=== PATIENT | male | born 1950 | race Caucasian/White ===

== ENCOUNTER 2017-02-16 09:08 | Outpatient (CLI) | payer MEDICAID ==
[~2017-02-16 09:08] MED LIST: IBUP-1984 PO; MULT-933 PO; NICO-687 TD; NYSPWD TP
== END 2017-02-16 10:30 | disposition home or self-care (01) ==
LOC: WOUND CARE 09:08
PROVIDERS: ATTEND Surgery
DX: E11.622 Type 2 diabetes mellitus with other skin ulcer (principal); L97.811 Non-pressure chronic ulcer of other part of right lower leg limited to breakdown of skin; J44.9 Chronic obstructive pulmonary disease, unspecified; F17.200 Nicotine dependence, unspecified, uncomplicated; F15.90 Other stimulant use, unspecified, uncomplicated; Z79.899 Other long term (current) drug therapy
CPT/HCPCS: 36416; 82948; 99211

== ENCOUNTER 2017-02-23 09:00 | Outpatient (CLI) | payer MEDICAID | END 2017-02-23 10:17 | disposition home or self-care (01) | LOC: WOUND CARE 09:00 → EDSTATUS 09:00 → WOUND CARE 10:17 | PROVIDERS: ATTEND Surgery | DX: E11.622 Type 2 diabetes mellitus with other skin ulcer (principal); L97.811 Non-pressure chronic ulcer of other part of right lower leg limited to breakdown of skin; J44.9 Chronic obstructive pulmonary disease, unspecified; F17.200 Nicotine dependence, unspecified, uncomplicated; F15.90 Other stimulant use, unspecified, uncomplicated; Z79.899 Other long term (current) drug therapy | CPT/HCPCS: 82948; 99215 ==

== ENCOUNTER 2017-06-11 06:59 | Inpatient (IN) | payer MEDICAID ==
[~2017-06-11] VITALS: Ht 170.2 cm; Wt 92.4 kg
[2017-06-11 07:34] LABS: BASOPHILS % (AUTO) 0.3 % (0-1); EOSINOPHILS # (AUTO) 0.3 X10'3 (0-0.9); HEMATOCRIT 37.8 % (42.0-52.0); HEMOGLOBIN 12.6 g/dl (14.0-17.9); LYMPHOCYTES # (AUTO) 1.2 X10'3 (1.1-4.8); MEAN CORPUSCULAR HEMOGLOBIN 32.4 PG (27.0-31.0); MEAN CORPUSCULAR HGB CONC 33.4 % (33.0-36.5); MEAN CORPUSCULAR VOLUME 96.8 FL (78-98); MEAN PLATELET VOLUME 9.3 FL (7.4-10.4); MONOCYTES # (AUTO) 0.6 X10'3 (0-0.9); MONOCYTES % (AUTO) 5.7 % (2-12); PLATELET COUNT 281 X10'3 (140-440); RED BLOOD COUNT 3.91 X10'6 (4.70-6.10); RED CELL DISTRIBUTION WIDTH 14.5 % (11.5-14.5); WHITE BLOOD COUNT 11.3 X10'3 (4.5-11.0)
[2017-06-11 07:48] LABS: ALANINE AMINOTRANSFERASE 37 U/L (12-78); ALBUMIN 3.3 G/DL (3.4-5.0); ALBUMIN/GLOBULIN RATIO 0.8 (1.1-1.5); ALKALINE PHOSPHATASE 97 IU/L (46-116); ANION GAP 11 (8-16); ASPARTATE AMINO TRANSFERASE 28 U/L (10-37); BILIRUBIN,TOTAL 0.8 MG/DL (0.1-1.0); BLOOD UREA NITROGEN 21 MG/DL (7-18); BUN/CREATININE RATIO 19.6 (5.4-32.0); CALCIUM 8.7 MG/DL (8.5-10.1); CHLORIDE 108 MMOL/L (99-107); CREATININE 1.07 MG/DL (0.60-1.10); GLUCOSE 150 MG/DL (70-104); POTASSIUM 4.2 MMOL/L (3.5-5.1); SODIUM 143 MMOL/L (135-145); TOTAL CARBON DIOXIDE 23.6 MMOL/L (24-32); TOTAL PROTEIN 7.6 G/DL (6.4-8.2); eGFR 70 ML/MIN
[2017-06-11] MEDS ORDERED: azithromycin/NS 500mg/250ml 250 ML IV ONE (08:30)
[2017-06-11] MEDS ORDERED: CefTRIAXone 2gm/D5W 50ml 50 ML IV ONE (08:30)
[2017-06-11] MEDS ORDERED: aspirin 81mg tab.chew PO ONE (08:30)
[2017-06-11] MEDS ORDERED: methylPREDNISolone sod succ 125mg/2ml vial IV ONE (08:30)
[2017-06-11] MEDS ORDERED: albuterol 2.5 MG/3 ML nebule NEB ONE (08:30)
[2017-06-11 08:54] LABS: INR 0.9 INR; PARTIAL THROMBOPLASTIN TIME 25 SECONDS (22-32); PROTHROMBIN TIME 9.7 SECONDS (9.0-12.0)
[2017-06-11] MEDS ORDERED: enoxaparin 100mg/ml syringe SUBCUT ONE (09:00)
[2017-06-11 09:04] LABS: CREATINE KINASE 440 U/L (39-308); MAGNESIUM 2.1 MG/DL (1.5-2.4)
[2017-06-11] MEDS ORDERED: potassium Cl 20 mEq SR tablet PO PRN ×2 (09:05)
[2017-06-11] MEDS ORDERED: proMETHazine 12.5mg rectal suppository RC PRN (09:05)
[2017-06-11] MEDS ORDERED: mag hydrox/Alum hydrox/simeth 30ml oral suspension PO PRN (09:05)
[2017-06-11] MEDS ORDERED: magnesium 2GM in 50ml NS 50 ML IV PRN (09:05)
[2017-06-11] MEDS ORDERED: acetaminophen 325mg tablet PO PRN ×2 (09:05)
[2017-06-11] MEDS ORDERED: magnesium Cl slow-release 64mg tablet PO PRN (09:05)
[2017-06-11] MEDS ORDERED: magnesium 4gm in 100ml NS 100 ML IV PRN (09:05)
[2017-06-11] MEDS ORDERED: potassium Cl 40MEQ/NS 500ml 500 ML IV PRN ×2 (09:05)
[2017-06-11] MEDS ORDERED: aspirin 325mg tablet PO ONE (09:05)
[2017-06-11] MEDS ORDERED: lisinopril 10 MG tablet PO ONE (09:05)
[2017-06-11] MEDS ORDERED: magnesium hydroxide 30ml (MOM) UD suspension PO PRN (09:05)
[2017-06-11] MEDS: LORazepam 2 mg/ml vial IV PRN ×3 (10:53→21:22)
[2017-06-11] MEDS: aspirin 325mg tablet PO SCH (10:57)
[2017-06-11] MEDS: ipratropium/albuterol 3ml nebule NEB SCH ×3 (11:00→23:41)
[2017-06-11 12:13] LABS: HEMOGLOBIN A1C 6.4 % (4.5-6.2)
[2017-06-11] MEDS: mineral oil/petrolatum, white cream 113gm jar TP SCH ×2 (13:00→20:44)
[2017-06-11 13:25] LABS: HIV ANTIBODY 1&2 RAPID NON-REACTIVE (Neg)
[2017-06-11] MEDS: methylPREDNISolone sod succ/PF 40mg inj. IV SCH ×2 (14:24→19:19)
[2017-06-11 15:30] VITALS: BP 145/97
[2017-06-11] MEDS ORDERED: nicotine 21mg patch - 24 hr TD ONE (17:45)
[2017-06-11 19:00] VITALS: BP 129/76
[2017-06-11] MEDS: enoxaparin 60mg/0.6ml syringe SQ SCH (19:19)
[2017-06-11] MEDS: enoxaparin 30mg/0.3ml syringe SQ SCH (19:19)
[2017-06-11] MEDS: docusate sod 100mg capsule PO SCH (19:19)
[2017-06-11] MEDS: metoprolol tartrate 12.5mg (1/2 tablet) PO SCH (19:20)
[2017-06-11 20:17] LABS: URINE AMPHETAMINE SCREEN POSITIVE (Neg); URINE BARBITUATE SCREEN NEGATIVE (Neg); URINE BENZODIAZEPINES SCREEN NEGATIVE (Neg); URINE CANNABINOID SCREEN POSITIVE (Neg); URINE COCAINE SCREEN NEGATIVE (Neg); URINE METHADONE SCREEN NEGATIVE (Neg); URINE OPIATE SCREEN NEGATIVE (Neg); URINE PHENCYCLIDINE SCREEN NEGATIVE (Neg)
[2017-06-11] MEDS ORDERED: pneumococcal 23-VAL P-sac vacc 25 mcg/0.5ml vial IMVAC ONE (20:30)
[2017-06-11] MEDS: nystatin 15 GM powder TP SCH (20:44)
[2017-06-11 23:04] VITALS: BP_SYST 121; BP_SYST 123; BP_SYST 128; BP_DIAS 94; BP_DIAS 95
[2017-06-12] VITALS: BP_SYST 121; BP_SYST 123; BP_SYST 128; BP_DIAS 94; BP_DIAS 95
[2017-06-12] MEDS: methylPREDNISolone sod succ/PF 40mg inj. IV SCH ×3 (02:13→19:11)
[2017-06-12] MEDS: LORazepam 2 mg/ml vial IV PRN ×2 (03:44→07:53)
[2017-06-12] MEDS: ipratropium/albuterol 3ml nebule NEB SCH ×6 (03:58→22:58)
[2017-06-12 06:44] LABS: BASOPHILS # (AUTO) 0.3 X10'3 (0-0.2); BASOPHILS % (AUTO) 1.4 % (0-1); EOSINOPHILS % (AUTO) 0 % (0-6); HEMATOCRIT 38.9 % (42.0-52.0); HEMOGLOBIN 12.9 g/dl (14.0-17.9); LYMPHOCYTES # (AUTO) 0.7 X10'3 (1.1-4.8); LYMPHOCYTES % (AUTO) 3.1 % (21-51); MEAN CORPUSCULAR HEMOGLOBIN 32.2 PG (27.0-31.0); MEAN CORPUSCULAR HGB CONC 33.1 % (33.0-36.5); MEAN CORPUSCULAR VOLUME 97.3 FL (78-98); MEAN PLATELET VOLUME 9.4 FL (7.4-10.4); MONOCYTES # (AUTO) 0.3 X10'3 (0-0.9); MONOCYTES % (AUTO) 1.4 % (2-12); NEUTROPHILS % (AUTO) 94.1 % (42-75); PLATELET COUNT 295 X10'3 (140-440); WHITE BLOOD COUNT 22.3 X10'3 (4.5-11.0)
[2017-06-12 07:13] LABS: ALANINE AMINOTRANSFERASE 32 U/L (12-78); ALBUMIN 3.2 G/DL (3.4-5.0); ALBUMIN/GLOBULIN RATIO 0.7 (1.1-1.5); ALKALINE PHOSPHATASE 99 IU/L (46-116); ANION GAP 11 (8-16); ASPARTATE AMINO TRANSFERASE 20 U/L (10-37); BILIRUBIN,TOTAL 0.6 MG/DL (0.1-1.0); BLOOD UREA NITROGEN 28 MG/DL (7-18); BUN/CREATININE RATIO 24.6 (5.4-32.0); CALCIUM 8.9 MG/DL (8.5-10.1); CHLORIDE 108 MMOL/L (99-107); CHOL/HDL RATIO 4.5 (0.00-4.99); CHOLESTEROL 179 MG/DL (0-200); CREATININE 1.14 MG/DL (0.60-1.10); GLUCOSE 161 MG/DL (70-104); HDL CHOLESTEROL 40 MG/DL (35-60); LDL CHOLESTEROL 126 MG/DL (50-100); MAGNESIUM 2.3 MG/DL (1.5-2.4); POTASSIUM 4.3 MMOL/L (3.5-5.1); SODIUM 142 MMOL/L (135-145); TOTAL CARBON DIOXIDE 22.6 MMOL/L (24-32); TOTAL PROTEIN 7.7 G/DL (6.4-8.2); TRIGLYCERIDES 51 MG/DL (20-135); eGFR 65 ML/MIN
[2017-06-12 07:18] VITALS: BP 135/86
[2017-06-12] MEDS: CefTRIAXone 2gm/D5W 50ml 50 ML IV SCH (07:49)
[2017-06-12] MEDS: metoprolol tartrate 12.5mg (1/2 tablet) PO SCH ×2 (07:50→19:10)
[2017-06-12] MEDS: docusate sod 100mg capsule PO SCH ×2 (07:50→19:10)
[2017-06-12] MEDS: azithromycin 250mg tablet PO SCH (07:50)
[2017-06-12] MEDS: loratadine 10mg tablet PO SCH (07:50)
[2017-06-12] MEDS: enoxaparin 30mg/0.3ml syringe SQ SCH ×2 (07:51→19:11)
[2017-06-12] MEDS: nicotine 21mg patch - 24 hr TD SCH (07:51)
[2017-06-12] MEDS: multivitamins, therapeutics tablet PO SCH (07:52)
[2017-06-12] MEDS: lisinopril 10 MG tablet PO SCH (07:52)
[2017-06-12] MEDS: K and/or MAG REPLACEMENT MC SCH (08:00)
[2017-06-12] MEDS ORDERED: nicotine 21mg patch - 24 hr TD SCH (08:00)
[2017-06-12] MEDS: mineral oil/petrolatum, white cream 113gm jar TP SCH ×3 (08:00→21:12)
[2017-06-12 08:10] LABS: RPR Non Reactive (Non Reactive)
[2017-06-12] MEDS: enoxaparin 60mg/0.6ml syringe SQ SCH ×2 (08:36→19:11)
[2017-06-12] MEDS: nystatin 15 GM powder TP SCH ×3 (08:36→21:13)
[2017-06-12] MEDS ORDERED: LORazepam 2 mg/ml vial IV PRN (09:05)
[2017-06-12] MEDS ORDERED: dextrose ORAL solution 15 GM/59 ML bottle PO PRN ×2 (09:05)
[2017-06-12] MEDS ORDERED: glucagon, human recombinant 1mg kit SUBCUT PRN (09:05)
[2017-06-12] MEDS ORDERED: dextrose 50%-water 50ml dispensing syringe IV PRN ×2 (09:05)
[2017-06-12] MEDS ORDERED: MESSAGE TO PHARMACY PO ONE (09:05)
[2017-06-12] MEDS ORDERED: thiamine inj. 100 MG in normal saline 100ml IV soln 100 ML IV ONE (10:10)
[2017-06-12 10:12] VITALS: BP_SYST 129; BP_SYST 135; BP_DIAS 102; BP_DIAS 86; BP_DIAS 99
[2017-06-12] MEDS: LORazepam 0.5 MG tablet PO PRN ×3 (11:25→23:26)
[2017-06-12 12:30] VITALS: BP 120/80
[2017-06-12] MEDS: insulin Lispro (HumaLOG) vial - multi-dose SQ SCH ×2 (13:51→19:09)
[2017-06-12 18:30] VITALS: BP_SYST 124; BP_SYST 134; BP_SYST 137; BP_DIAS 104; BP_DIAS 87; BP_DIAS 92
[2017-06-12] MEDS: insulin glargine (Lantus) pen - multi-dose SQ SCH (21:11)
[2017-06-12 23:00] VITALS: BP 135/96
[2017-06-13] MEDS: LORazepam 0.5 MG tablet PO PRN ×5 (01:31→23:36)
[2017-06-13] MEDS: HYDROcodone/acetaminophen 5mg/325mg tablet PO PRN (01:40)
[2017-06-13] MEDS: ipratropium/albuterol 3ml nebule NEB SCH ×6 (02:39→23:00)
[2017-06-13 05:59] LABS: BASOPHILS # (AUTO) 0.1 X10'3 (0-0.2); BASOPHILS % (AUTO) 0.6 % (0-1); EOSINOPHILS % (AUTO) 0 % (0-6); HEMATOCRIT 36.1 % (42.0-52.0); HEMOGLOBIN 12.3 g/dl (14.0-17.9); LYMPHOCYTES # (AUTO) 1.1 X10'3 (1.1-4.8); LYMPHOCYTES % (AUTO) 4.3 % (21-51); MEAN CORPUSCULAR HEMOGLOBIN 32.9 PG (27.0-31.0); MEAN CORPUSCULAR HGB CONC 33.9 % (33.0-36.5); MEAN CORPUSCULAR VOLUME 96.9 FL (78-98); MEAN PLATELET VOLUME 10.1 FL (7.4-10.4); MONOCYTES # (AUTO) 0.6 X10'3 (0-0.9); MONOCYTES % (AUTO) 2.4 % (2-12); NEUTROPHILS # (AUTO) 23.1 X10'3 (1.8-7.7); NEUTROPHILS % (AUTO) 92.7 % (42-75); PLATELET COUNT 265 X10'3 (140-440); RED BLOOD COUNT 3.73 X10'6 (4.70-6.10); RED CELL DISTRIBUTION WIDTH 14.8 % (11.5-14.5)
[2017-06-13 06:23] LABS: ALANINE AMINOTRANSFERASE 32 U/L (12-78); ALBUMIN/GLOBULIN RATIO 0.7 (1.1-1.5); ALKALINE PHOSPHATASE 81 IU/L (46-116); AMYLASE 67 U/L (25-115); ANION GAP 11 (8-16); ASPARTATE AMINO TRANSFERASE 19 U/L (10-37); BILIRUBIN,TOTAL 0.6 MG/DL (0.1-1.0); BLOOD UREA NITROGEN 31 MG/DL (7-18); BUN/CREATININE RATIO 29.2 (5.4-32.0); CALCIUM 8.4 MG/DL (8.5-10.1); CHLORIDE 109 MMOL/L (99-107); CREATININE 1.06 MG/DL (0.60-1.10); GLUCOSE 146 MG/DL (70-104); LIPASE 343 U/L (73-393); MAGNESIUM 2.2 MG/DL (1.5-2.4); PHOSPHORUS 4.3 MG/DL (2.3-4.5); SODIUM 143 MMOL/L (135-145); TOTAL CARBON DIOXIDE 22.6 MMOL/L (24-32); TOTAL PROTEIN 7.1 G/DL (6.4-8.2); eGFR 70 ML/MIN
[2017-06-13 06:24] LABS: POTASSIUM 5.2 MMOL/L (3.5-5.1)
[2017-06-13 07:17] VITALS: BP 119/78
[2017-06-13 07:18] VITALS: BP_SYST 128; BP_SYST 132; BP_DIAS 80; BP_DIAS 94
[2017-06-13 07:19] VITALS: BP 119/78
[2017-06-13] MEDS: CefTRIAXone 2gm/D5W 50ml 50 ML IV SCH (07:46)
[2017-06-13] MEDS: methylPREDNISolone sod succ/PF 40mg inj. IV SCH ×2 (07:46→20:25)
[2017-06-13] MEDS: K and/or MAG REPLACEMENT MC SCH (07:49)
[2017-06-13 07:57] LABS: LYMPHOCYTES % (MANUAL) 2 % (21-51); MONOCYTES % (MANUAL) 1 % (2-12); NEUTROPHILS % (MANUAL) 97 % (42-75); PLATELET ESTIMATE NORMAL; TOTAL CELLS COUNTED 100
[2017-06-13] MEDS: loratadine 10mg tablet PO SCH (07:59)
[2017-06-13] MEDS: nicotine 21mg patch - 24 hr TD SCH (07:59)
[2017-06-13] MEDS: docusate sod 100mg capsule PO SCH ×2 (07:59→20:25)
[2017-06-13] MEDS: folic acid 1mg tablet PO SCH (08:00)
[2017-06-13] MEDS: mineral oil/petrolatum, white cream 113gm jar TP SCH ×3 (08:00→20:47)
[2017-06-13] MEDS: nystatin 15 GM powder TP SCH ×3 (08:00→20:48)
[2017-06-13] MEDS ORDERED: folic acid inj. 2 MG, thiamine inj. 100 MG, MVI, adult No.4 with vit. K 10 ML in dextro... IV SCH ×4 (08:00)
[2017-06-13] MEDS: thiamine 100mg tablet PO SCH (08:05)
[2017-06-13] MEDS: metoprolol tartrate 12.5mg (1/2 tablet) PO SCH ×2 (08:05→20:25)
[2017-06-13] MEDS: azithromycin 250mg tablet PO SCH (08:06)
[2017-06-13] MEDS: lisinopril 10 MG tablet PO SCH (08:06)
[2017-06-13] MEDS: aspirin 325mg tablet PO SCH (08:06)
[2017-06-13] MEDS: enoxaparin 30mg/0.3ml syringe SQ SCH ×2 (08:08→20:26)
[2017-06-13] MEDS: multivitamins, therapeutics tablet PO SCH (08:12)
[2017-06-13] MEDS: insulin Lispro (HumaLOG) vial - multi-dose SQ SCH ×3 (08:30→19:00)
[2017-06-13] MEDS: enoxaparin 60mg/0.6ml syringe SQ SCH ×2 (10:52→20:26)
[2017-06-13 11:22] VITALS: BP 122/79
[2017-06-13] MEDS ORDERED: NO HOME MEDS (17:03)
[2017-06-13] MEDS ORDERED: furosemide 20MG tablet PO ONE (17:15)
[2017-06-13] MEDS ORDERED: guaiFENesin 200 MG/10 ML oral syrup UD cup PO PRN (17:25)
[2017-06-13 20:00] VITALS: BP_SYST 127; BP_SYST 133; BP_SYST 137; BP_DIAS 100; BP_DIAS 72; BP_DIAS 87
[2017-06-13] MEDS: lactobacillus rhamnosus 10,000 MMU CELLS/CAPSULE PO SCH (20:25)
[2017-06-13] MEDS: insulin glargine (Lantus) pen - multi-dose SQ SCH (20:38)
[2017-06-14 00:24] VITALS: BP 118/91
[2017-06-14] MEDS: LORazepam 0.5 MG tablet PO PRN ×5 (03:08→21:05)
[2017-06-14] MEDS: ipratropium/albuterol 3ml nebule NEB SCH ×2 (04:43→07:18)
[2017-06-14 05:45] LABS: BASOPHILS % (AUTO) 0.1 % (0-1); EOSINOPHILS # (AUTO) 0.1 X10'3 (0-0.9); EOSINOPHILS % (AUTO) 0.5 % (0-6); HEMATOCRIT 34.8 % (42.0-52.0); HEMOGLOBIN 11.7 g/dl (14.0-17.9); LYMPHOCYTES # (AUTO) 1.3 X10'3 (1.1-4.8); MEAN CORPUSCULAR HEMOGLOBIN 32.2 PG (27.0-31.0); MEAN CORPUSCULAR HGB CONC 33.5 % (33.0-36.5); MEAN CORPUSCULAR VOLUME 96.2 FL (78-98); MEAN PLATELET VOLUME 9.3 FL (7.4-10.4); MONOCYTES # (AUTO) 0.6 X10'3 (0-0.9); MONOCYTES % (AUTO) 3.2 % (2-12); NEUTROPHILS % (AUTO) 89.2 % (42-75); PLATELET COUNT 299 X10'3 (140-440); RED BLOOD COUNT 3.62 X10'6 (4.70-6.10); RED CELL DISTRIBUTION WIDTH 14.8 % (11.5-14.5); WHITE BLOOD COUNT 19.1 X10'3 (4.5-11.0)
[2017-06-14 05:52] LABS: PROTHROMBIN TIME 10.3 SECONDS (9.0-12.0)
[2017-06-14 06:09] LABS: ALANINE AMINOTRANSFERASE 45 U/L (12-78); ALBUMIN/GLOBULIN RATIO 0.8 (1.1-1.5); ALKALINE PHOSPHATASE 77 IU/L (46-116); AMYLASE 40 U/L (25-115); ANION GAP 9 (8-16); ASPARTATE AMINO TRANSFERASE 25 U/L (10-37); BILIRUBIN,TOTAL 0.6 MG/DL (0.1-1.0); BLOOD UREA NITROGEN 41 MG/DL (7-18); BUN/CREATININE RATIO 32.5 (5.4-32.0); CALCIUM 8.6 MG/DL (8.5-10.1); CHLORIDE 108 MMOL/L (99-107); CREATININE 1.26 MG/DL (0.60-1.10); GLUCOSE 130 MG/DL (70-104); LIPASE 76 U/L (73-393); MAGNESIUM 2.1 MG/DL (1.5-2.4); PHOSPHORUS 4.8 MG/DL (2.3-4.5); POTASSIUM 4.5 MMOL/L (3.5-5.1); SODIUM 144 MMOL/L (135-145); TOTAL CARBON DIOXIDE 26.9 MMOL/L (24-32); TOTAL PROTEIN 6.9 G/DL (6.4-8.2); eGFR 58 ML/MIN
[2017-06-14] MEDS: K and/or MAG REPLACEMENT MC SCH (06:37)
[2017-06-14] MEDS: methylPREDNISolone sod succ/PF 40mg inj. IV SCH ×2 (07:01→19:43)
[2017-06-14] MEDS: enoxaparin 60mg/0.6ml syringe SQ SCH ×2 (07:01→19:42)
[2017-06-14] MEDS: loratadine 10mg tablet PO SCH (07:02)
[2017-06-14] MEDS: metoprolol tartrate 12.5mg (1/2 tablet) PO SCH ×2 (07:02→19:42)
[2017-06-14] MEDS: enoxaparin 30mg/0.3ml syringe SQ SCH ×2 (07:02→19:41)
[2017-06-14] MEDS: aspirin 325mg tablet PO SCH (07:02)
[2017-06-14] MEDS: multivitamins, therapeutics tablet PO SCH (07:02)
[2017-06-14] MEDS: azithromycin 250mg tablet PO SCH (07:03)
[2017-06-14] MEDS: nicotine 21mg patch - 24 hr TD SCH (07:03)
[2017-06-14] MEDS: thiamine 100mg tablet PO SCH (07:03)
[2017-06-14] MEDS: folic acid 1mg tablet PO SCH (07:03)
[2017-06-14] MEDS: docusate sod 100mg capsule PO SCH ×2 (07:03→19:42)
[2017-06-14] MEDS: lactobacillus rhamnosus 10,000 MMU CELLS/CAPSULE PO SCH ×2 (07:03→19:42)
[2017-06-14] MEDS: CefTRIAXone 2gm/D5W 50ml 50 ML IV SCH (07:04)
[2017-06-14] MEDS: mineral oil/petrolatum, white cream 113gm jar TP SCH ×3 (07:20→21:52)
[2017-06-14] MEDS: lisinopril 10 MG tablet PO SCH (07:21)
[2017-06-14] MEDS: HYDROcodone/acetaminophen 10/325mg tab PO PRN ×2 (07:31→22:27)
[2017-06-14] MEDS: insulin Lispro (HumaLOG) vial - multi-dose SQ SCH ×2 (07:38→13:07)
[2017-06-14 08:00] VITALS: BP 138/76
[2017-06-14] MEDS: nystatin 15 GM powder TP SCH ×3 (08:00→21:52)
[2017-06-14] MEDS ORDERED: furosemide 20MG tablet PO SCH (08:00)
[2017-06-14] MEDS ORDERED: clindamycin 600mg/D5W 50ml 50 ML IV SCH (08:00)
[2017-06-14] MEDS ORDERED: LORazepam 0.5 MG tablet PO ONE (08:35)
[2017-06-14] MEDS ORDERED: QUEtiapine 25mg tablet PO PRN (08:35)
[2017-06-14] MEDS: piperacillin/tazo 4.5gm/100ml 100 ML IV SCH ×3 (10:08→23:37)
[2017-06-14 11:02] VITALS: BP 128/98
[2017-06-14] MEDS: ipratropium 0.5 MG/2.5ML nebule IH SCH ×4 (11:12→23:28)
[2017-06-14] MEDS ORDERED: lactulose 20gm/30ml cup PO PRN (16:45)
[2017-06-14 20:00] VITALS: BP_SYST 111; BP_SYST 118; BP_SYST 137; BP_DIAS 88; BP_DIAS 94; BP_DIAS 95
[2017-06-14] MEDS ORDERED: furosemide 20 MG/2 ML vial IV SCH (20:00)
[2017-06-14] MEDS: insulin glargine (Lantus) pen - multi-dose SQ SCH (21:08)
[2017-06-15] VITALS (9 sets, daily range): BP systolic 90–123; BP diastolic 56–88
[2017-06-15] MEDS: LORazepam 0.5 MG tablet PO PRN ×4 (00:13→20:28)
[2017-06-15] MEDS: ipratropium 0.5 MG/2.5ML nebule IH SCH ×6 (03:18→23:32)
[2017-06-15 06:18] LABS: PROTHROMBIN TIME 10.8 SECONDS (9.0-12.0)
[2017-06-15 06:26] LABS: HEMATOCRIT 37.6 % (42.0-52.0); HEMOGLOBIN 12.6 g/dl (14.0-17.9); MEAN CORPUSCULAR HEMOGLOBIN 32.4 PG (27.0-31.0); MEAN CORPUSCULAR HGB CONC 33.6 % (33.0-36.5); MEAN CORPUSCULAR VOLUME 96.6 FL (78-98); MEAN PLATELET VOLUME 10.1 FL (7.4-10.4); PLATELET COUNT 292 X10'3 (140-440); RED CELL DISTRIBUTION WIDTH 15.1 % (11.5-14.5); WHITE BLOOD COUNT 16.5 X10'3 (4.5-11.0)
[2017-06-15 06:34] LABS: ALANINE AMINOTRANSFERASE 60 U/L (12-78); ALBUMIN/GLOBULIN RATIO 0.8 (1.1-1.5); ALKALINE PHOSPHATASE 70 IU/L (46-116); AMYLASE 33 U/L (25-115); ANION GAP 6 (8-16); ASPARTATE AMINO TRANSFERASE 29 U/L (10-37); BILIRUBIN,TOTAL 0.8 MG/DL (0.1-1.0); BLOOD UREA NITROGEN 42 MG/DL (7-18); BUN/CREATININE RATIO 28.6 (5.4-32.0); CALCIUM 8.1 MG/DL (8.5-10.1); CHLORIDE 106 MMOL/L (99-107); CREATININE 1.47 MG/DL (0.60-1.10); GLUCOSE 126 MG/DL (70-104); LIPASE 53 U/L (73-393); MAGNESIUM 2.4 MG/DL (1.5-2.4); PHOSPHORUS 5.5 MG/DL (2.3-4.5); POTASSIUM 4.8 MMOL/L (3.5-5.1); SODIUM 143 MMOL/L (135-145); TOTAL CARBON DIOXIDE 31.3 MMOL/L (24-32); TOTAL PROTEIN 6.7 G/DL (6.4-8.2); eGFR 48 ML/MIN
[2017-06-15 06:41] LABS: NEUTROPHILS % (MANUAL) 86 % (42-75); TOTAL CELLS COUNTED 100
[2017-06-15 06:42] LABS: BANDS% (MANUAL) 1 % (0-10); LYMPHOCYTES % (MANUAL) 11 % (21-51); MONOCYTES % (MANUAL) 2 % (2-12); PLATELET ESTIMATE NORMAL
[2017-06-15] MEDS: docusate sod 100mg capsule PO SCH ×2 (07:14→20:27)
[2017-06-15] MEDS: thiamine 100mg tablet PO SCH (07:14)
[2017-06-15] MEDS: multivitamins, therapeutics tablet PO SCH (07:15)
[2017-06-15] MEDS: folic acid 1mg tablet PO SCH (07:15)
[2017-06-15] MEDS: nicotine 21mg patch - 24 hr TD SCH (07:17)
[2017-06-15] MEDS: enoxaparin 30mg/0.3ml syringe SQ SCH ×2 (07:24→20:26)
[2017-06-15] MEDS: enoxaparin 60mg/0.6ml syringe SQ SCH ×2 (07:34→20:26)
[2017-06-15] MEDS: aspirin 325mg tablet PO SCH (07:39)
[2017-06-15] MEDS: loratadine 10mg tablet PO SCH (07:39)
[2017-06-15] MEDS: methylPREDNISolone sod succ/PF 40mg inj. IV SCH ×2 (08:00→20:25)
[2017-06-15] MEDS: K and/or MAG REPLACEMENT MC SCH (08:00)
[2017-06-15] MEDS: piperacillin/tazo 3.375gm/50ml 50 ML IV SCH ×3 (09:33→20:25)
[2017-06-15 09:42] LABS: HEMATOCRIT 39.4 % (42.0-52.0); HEMOGLOBIN 13.2 g/dl (14.0-17.9); MEAN CORPUSCULAR HEMOGLOBIN 32.5 PG (27.0-31.0); MEAN CORPUSCULAR HGB CONC 33.5 % (33.0-36.5); MEAN CORPUSCULAR VOLUME 96.9 FL (78-98); MEAN PLATELET VOLUME 9.6 FL (7.4-10.4); PLATELET COUNT 299 X10'3 (140-440); RED BLOOD COUNT 4.06 X10'6 (4.70-6.10); RED CELL DISTRIBUTION WIDTH 14.6 % (11.5-14.5); WHITE BLOOD COUNT 16.8 X10'3 (4.5-11.0)
[2017-06-15] MEDS: lactobacillus rhamnosus 10,000 MMU CELLS/CAPSULE PO SCH ×2 (11:01→20:26)
[2017-06-15] MEDS: mineral oil/petrolatum, white cream 113gm jar TP SCH ×3 (11:04→20:47)
[2017-06-15] MEDS: nystatin 15 GM powder TP SCH ×3 (11:08→20:46)
[2017-06-15] MEDS: insulin Lispro (HumaLOG) vial - multi-dose SQ SCH (13:04)
[2017-06-15] MEDS: insulin glargine (Lantus) pen - multi-dose SQ SCH (20:45)
[2017-06-15] MEDS: HYDROcodone/acetaminophen 10/325mg tab PO PRN (23:49)
[2017-06-16] VITALS (7 sets, daily range): BP systolic 97–132; BP diastolic 63–86
[2017-06-16] MEDS: piperacillin/tazo 3.375gm/50ml 50 ML IV SCH ×4 (01:47→20:58)
[2017-06-16] MEDS: LORazepam 0.5 MG tablet PO PRN ×2 (02:35→12:29)
[2017-06-16] MEDS: ipratropium 0.5 MG/2.5ML nebule IH SCH ×6 (03:09→23:48)
[2017-06-16 06:12] LABS: BASOPHILS # (AUTO) 0.1 X10'3 (0-0.2); BASOPHILS % (AUTO) 0.6 % (0-1); EOSINOPHILS # (AUTO) 0.1 X10'3 (0-0.9); EOSINOPHILS % (AUTO) 0.3 % (0-6); HEMATOCRIT 40.2 % (42.0-52.0); HEMOGLOBIN 13.4 g/dl (14.0-17.9); LYMPHOCYTES # (AUTO) 1.6 X10'3 (1.1-4.8); LYMPHOCYTES % (AUTO) 10.4 % (21-51); MEAN CORPUSCULAR HEMOGLOBIN 32.3 PG (27.0-31.0); MEAN CORPUSCULAR HGB CONC 33.4 % (33.0-36.5); MEAN CORPUSCULAR VOLUME 96.7 FL (78-98); MEAN PLATELET VOLUME 10.3 FL (7.4-10.4); MONOCYTES # (AUTO) 0.7 X10'3 (0-0.9); MONOCYTES % (AUTO) 4.4 % (2-12); NEUTROPHILS # (AUTO) 13.3 X10'3 (1.8-7.7); NEUTROPHILS % (AUTO) 84.3 % (42-75); PLATELET COUNT 331 X10'3 (140-440); RED BLOOD COUNT 4.15 X10'6 (4.70-6.10); RED CELL DISTRIBUTION WIDTH 14.3 % (11.5-14.5); WHITE BLOOD COUNT 15.7 X10'3 (4.5-11.0)
[2017-06-16 06:13] LABS: PROTHROMBIN TIME 10.7 SECONDS (9.0-12.0)
[2017-06-16 06:39] LABS: ALANINE AMINOTRANSFERASE 53 U/L (12-78); ALBUMIN/GLOBULIN RATIO 0.8 (1.1-1.5); ALKALINE PHOSPHATASE 75 IU/L (46-116); AMYLASE 67 U/L (25-115); ANION GAP 6 (8-16); ASPARTATE AMINO TRANSFERASE 19 U/L (10-37); BILIRUBIN,TOTAL 0.7 MG/DL (0.1-1.0); BLOOD UREA NITROGEN 42 MG/DL (7-18); BUN/CREATININE RATIO 31.1 (5.4-32.0); CHLORIDE 105 MMOL/L (99-107); CREATININE 1.35 MG/DL (0.60-1.10); GLUCOSE 121 MG/DL (70-104); LIPASE 252 U/L (73-393); MAGNESIUM 2.5 MG/DL (1.5-2.4); PHOSPHORUS 5.5 MG/DL (2.3-4.5); SODIUM 141 MMOL/L (135-145); TOTAL CARBON DIOXIDE 29.7 MMOL/L (24-32); TOTAL PROTEIN 6.8 G/DL (6.4-8.2); eGFR 53 ML/MIN
[2017-06-16] MEDS: methylPREDNISolone sod succ/PF 40mg inj. IV SCH (07:52)
[2017-06-16] MEDS: K and/or MAG REPLACEMENT MC SCH (08:00)
[2017-06-16] MEDS: nicotine 21mg patch - 24 hr TD SCH (08:07)
[2017-06-16] MEDS: folic acid 1mg tablet PO SCH (08:09)
[2017-06-16] MEDS: docusate sod 100mg capsule PO SCH ×2 (08:10→20:59)
[2017-06-16] MEDS: lactobacillus rhamnosus 10,000 MMU CELLS/CAPSULE PO SCH ×2 (08:10→20:59)
[2017-06-16] MEDS: loratadine 10mg tablet PO SCH (08:10)
[2017-06-16] MEDS: multivitamins, therapeutics tablet PO SCH (08:10)
[2017-06-16] MEDS: aspirin 325mg tablet PO SCH (08:10)
[2017-06-16] MEDS: thiamine 100mg tablet PO SCH (08:10)
[2017-06-16] MEDS: enoxaparin 60mg/0.6ml syringe SQ SCH ×2 (08:16→20:59)
[2017-06-16] MEDS: enoxaparin 30mg/0.3ml syringe SQ SCH ×2 (08:16→20:59)
[2017-06-16] MEDS: nystatin 15 GM powder TP SCH ×3 (08:19→21:34)
[2017-06-16] MEDS: mineral oil/petrolatum, white cream 113gm jar TP SCH ×3 (08:20→21:34)
[2017-06-16] MEDS: insulin Lispro (HumaLOG) vial - multi-dose SQ SCH ×2 (09:23→13:08)
[2017-06-16] MEDS: HYDROcodone/acetaminophen 5mg/325mg tablet PO PRN (12:29)
[2017-06-16] MEDS: insulin glargine (Lantus) pen - multi-dose SQ SCH (21:32)
[2017-06-17] VITALS: BP 107/77
[2017-06-17] MEDS: LORazepam 0.5 MG tablet PO PRN (00:30)
[2017-06-17] MEDS: piperacillin/tazo 3.375gm/50ml 50 ML IV SCH ×3 (02:07→14:00)
[2017-06-17] MEDS: HYDROcodone/acetaminophen 5mg/325mg tablet PO PRN (02:09)
[2017-06-17] MEDS: ipratropium 0.5 MG/2.5ML nebule IH SCH ×4 (03:04→14:51)
[2017-06-17 06:05] LABS: PROTHROMBIN TIME 10.7 SECONDS (9.0-12.0)
[2017-06-17 06:14] LABS: ALBUMIN 2.7 G/DL (3.4-5.0); AMYLASE 45 U/L (25-115); ANION GAP 7 (8-16); BLOOD UREA NITROGEN 41 MG/DL (7-18); BUN/CREATININE RATIO 28.7 (5.4-32.0); CALCIUM 8.2 MG/DL (8.5-10.1); CHLORIDE 106 MMOL/L (99-107); CREATININE 1.43 MG/DL (0.60-1.10); GLUCOSE 94 MG/DL (70-104); LIPASE 88 U/L (73-393); MAGNESIUM 2.5 MG/DL (1.5-2.4); PHOSPHORUS 4.1 MG/DL (2.3-4.5); POTASSIUM 4.7 MMOL/L (3.5-5.1); SODIUM 144 MMOL/L (135-145); TOTAL CARBON DIOXIDE 31.1 MMOL/L (24-32); eGFR 50 ML/MIN
[2017-06-17 06:36] LABS: BASOPHILS % (AUTO) 0.3 % (0-1); EOSINOPHILS # (AUTO) 0.2 X10'3 (0-0.9); HEMATOCRIT 39.3 % (42.0-52.0); LYMPHOCYTES # (AUTO) 3.8 X10'3 (1.1-4.8); LYMPHOCYTES % (AUTO) 24.2 % (21-51); MEAN CORPUSCULAR VOLUME 96.8 FL (78-98); MEAN PLATELET VOLUME 10.4 FL (7.4-10.4); MONOCYTES # (AUTO) 0.7 X10'3 (0-0.9); MONOCYTES % (AUTO) 4.5 % (2-12); PLATELET COUNT 298 X10'3 (140-440); RED BLOOD COUNT 4.06 X10'6 (4.70-6.10); RED CELL DISTRIBUTION WIDTH 14.9 % (11.5-14.5); WHITE BLOOD COUNT 15.8 X10'3 (4.5-11.0)
[2017-06-17] MEDS: K and/or MAG REPLACEMENT MC SCH (08:00)
[2017-06-17 08:11] VITALS: BP 119/93
[2017-06-17] MEDS ORDERED: predniSONE 20 mg tablet PO SCH (08:30)
[2017-06-17] MEDS: insulin Lispro (HumaLOG) vial - multi-dose SQ SCH (09:14)
[2017-06-17] MEDS: enoxaparin 60mg/0.6ml syringe SQ SCH (09:15)
[2017-06-17] MEDS: enoxaparin 30mg/0.3ml syringe SQ SCH (09:16)
[2017-06-17] MEDS: nicotine 21mg patch - 24 hr TD SCH (09:17)
[2017-06-17] MEDS: docusate sod 100mg capsule PO SCH (09:17)
[2017-06-17] MEDS: multivitamins, therapeutics tablet PO SCH (09:17)
[2017-06-17] MEDS: loratadine 10mg tablet PO SCH (09:18)
[2017-06-17] MEDS: lactobacillus rhamnosus 10,000 MMU CELLS/CAPSULE PO SCH (09:19)
[2017-06-17] MEDS: folic acid 1mg tablet PO SCH (09:19)
[2017-06-17] MEDS: thiamine 100mg tablet PO SCH (09:19)
[2017-06-17] MEDS: aspirin 325mg tablet PO SCH (09:19)
[2017-06-17] MEDS: mineral oil/petrolatum, white cream 113gm jar TP SCH ×2 (09:20→13:00)
[2017-06-17] MEDS: nystatin 15 GM powder TP SCH ×2 (09:20→13:00)
[2017-06-17 12:00] VITALS: BP_SYST 110; BP_SYST 115; BP_SYST 119; BP_DIAS 77; BP_DIAS 86; BP_DIAS 87
[2017-06-17] MEDS ORDERED: FOLI1TAB16 PO (12:15)
[2017-06-17] MEDS ORDERED: NICO-687 TD (12:15)
[2017-06-17] MEDS ORDERED: QUET25TA34 PO (12:15)
[2017-06-17] MEDS ORDERED: ASPI-1 PO (12:15)
[2017-06-17] MEDS ORDERED: MULT-1179 PO (12:15)
[2017-06-17] MEDS ORDERED: THI100T PO (12:15)
[2017-06-17] MEDS ORDERED: PRED20TA PO (12:15)
[2017-06-17] MEDS ORDERED: AMOX-580 PO (12:24)
[2017-06-17] MEDS ORDERED: CARV-49 PO (12:36)
[2017-06-17] MEDS ORDERED: AMLO5TAB4 PO (12:37)
[2017-06-17] MEDS ORDERED: ATOR10TA PO (12:39)
== END 2017-06-17 16:03 | disposition home or self-care (01) | DRG 720 ==
LOC: ER 06:59 → ED HOLD 09:04 → EDBEDREQSVC 13:35 → EDBEDREQ 13:35 → EDBEDREQTM 13:35 → MED 3N 15:01
PROVIDERS: ADMIT Legal Medicine; ATTEND Family Medicine
DX: A41.9 Sepsis, unspecified organism (principal); J96.20 Acute and chronic respiratory failure, unspecified whether with hypoxia or hypercapnia; I21.4 Non-ST elevation (NSTEMI) myocardial infarction; I50.23 Acute on chronic systolic (congestive) heart failure; J18.1 Lobar pneumonia, unspecified organism; I11.0 Hypertensive heart disease with heart failure; I42.9 Cardiomyopathy, unspecified; I27.20 Pulmonary hypertension, unspecified; R55 Syncope and collapse; F15.90 Other stimulant use, unspecified, uncomplicated; L50.9 Urticaria, unspecified; B19.10 Unspecified viral hepatitis B without hepatic coma; B19.20 Unspecified viral hepatitis C without hepatic coma; F17.200 Nicotine dependence, unspecified, uncomplicated; R73.9 Hyperglycemia, unspecified; J44.9 Chronic obstructive pulmonary disease, unspecified; D64.9 Anemia, unspecified; F12.90 Cannabis use, unspecified, uncomplicated; F41.0 Panic disorder [episodic paroxysmal anxiety]; J44.0 Chronic obstructive pulmonary disease with (acute) lower respiratory infection; J44.1 Chronic obstructive pulmonary disease with (acute) exacerbation; J98.11 Atelectasis; R73.03 Prediabetes; G89.29 Other chronic pain; M54.9 Dorsalgia, unspecified; Z79.899 Other long term (current) drug therapy; Z79.01 Long term (current) use of anticoagulants; Z79.82 Long term (current) use of aspirin
CPT/HCPCS: 36415; 70450; 71046; 71250; 80048; 80053; 80061; 80305; 82150; 82550; 82607; 82746; 82948; 83036; 83540; 83550; 83605; 83690; 83735; 83880; 84100; 84484; 85025; 85027; 85610; 85730; 86592; 86703; 87040; 87070; 90732; 93005; 93306; 94640; 94667; 94668; 94760; 95816; 96365; 96375; 97110; 97161; 97535; 99285; J0456; J0696; J1650; J1815; J1940; J2060; J2543; J2920; J2930; J3411; J3475; J7030; J7512

== ENCOUNTER 2017-07-17 13:24 | Inpatient (IN) | payer MEDICAID ==
[~2017-07-17] VITALS: Ht 167.6 cm; Wt 87.5 kg
[~2017-07-17 13:24] MED LIST changes: +AMLO5TAB4 PO; +ASPI-1 PO; +ATOR10TA PO; +CARV-49 PO; +FOLI1TAB16 PO; -IBUP-1984 PO; +MULT-1179 PO; -MULT-933 PO; -NYSPWD TP; +QUET25TA34 PO; +THI100T PO; +TIOT4MIS5
[2017-07-17 14:00] LABS: BASOPHILS # (AUTO) 0.1 X10'3 (0-0.2); BASOPHILS % (AUTO) 0.6 % (0-1); EOSINOPHILS # (AUTO) 0.2 X10'3 (0-0.9); EOSINOPHILS % (AUTO) 1.6 % (0-6); HEMATOCRIT 34.7 % (42.0-52.0); HEMOGLOBIN 11.6 g/dl (14.0-17.9); LYMPHOCYTES # (AUTO) 1.9 X10'3 (1.1-4.8); LYMPHOCYTES % (AUTO) 17.7 % (21-51); MEAN CORPUSCULAR HEMOGLOBIN 32.6 PG (27.0-31.0); MEAN CORPUSCULAR HGB CONC 33.5 % (33.0-36.5); MEAN CORPUSCULAR VOLUME 97.3 FL (78-98); MEAN PLATELET VOLUME 8.8 FL (7.4-10.4); MONOCYTES # (AUTO) 0.8 X10'3 (0-0.9); MONOCYTES % (AUTO) 7.1 % (2-12); NEUTROPHILS # (AUTO) 7.9 X10'3 (1.8-7.7); PLATELET COUNT 322 X10'3 (140-440); RED BLOOD COUNT 3.57 X10'6 (4.70-6.10); WHITE BLOOD COUNT 10.8 X10'3 (4.5-11.0)
[2017-07-17 14:07] LABS: PARTIAL THROMBOPLASTIN TIME 24 SECONDS (22-32); PROTHROMBIN TIME 10.5 SECONDS (9.0-12.0)
[2017-07-17 14:13] LABS: ALANINE AMINOTRANSFERASE 41 U/L (12-78); ALBUMIN 3.5 G/DL (3.4-5.0); ALKALINE PHOSPHATASE 87 IU/L (46-116); ANION GAP 6 (8-16); ASPARTATE AMINO TRANSFERASE 23 U/L (10-37); BLOOD UREA NITROGEN 23 MG/DL (7-18); BUN/CREATININE RATIO 16.3 (5.4-32.0); CALCIUM 8.6 MG/DL (8.5-10.1); CHLORIDE 110 MMOL/L (99-107); CREATININE 1.41 MG/DL (0.60-1.10); GLUCOSE 110 MG/DL (70-104); POTASSIUM 3.9 MMOL/L (3.5-5.1); SODIUM 140 MMOL/L (135-145); TOTAL CARBON DIOXIDE 24.2 MMOL/L (24-32); eGFR 51 ML/MIN
[2017-07-17 14:21] LABS: ETHANOL < 0.010 GM/DL (0.0-0.010)
[2017-07-17] MEDS ORDERED: furosemide 10 MG/1 ML 10ml inj IV ONE (14:40)
[2017-07-17] MEDS ORDERED: nitroGLYCERIN 0.4mg/hour patch TD ONE (14:40)
[2017-07-17] MEDS ORDERED: aspirin 81mg tab.chew PO ONE (14:40)
[2017-07-17] MEDS ORDERED: carvedilol 6.25mg tablet PO ONE (14:40)
[2017-07-17] MEDS ORDERED: mag hydrox/Alum hydrox/simeth 30ml oral suspension PO PRN (15:30)
[2017-07-17] MEDS ORDERED: magnesium hydroxide 30ml (MOM) UD suspension PO PRN (15:30)
[2017-07-17] MEDS ORDERED: ondansetron/PF 4mg/2ml inj IV PRN (15:30)
[2017-07-17] MEDS ORDERED: acetaminophen 325mg tablet PO PRN ×2 (15:30)
[2017-07-17] MEDS ORDERED: lisinopril 10 MG tablet PO ONE (15:40)
[2017-07-17] MEDS ORDERED: lisinopril 2.5mg tablet PO ONE (15:40)
[2017-07-17] MEDS ORDERED: ipratropium/albuterol 3ml nebule NEB PRN (15:45)
[2017-07-17 17:31] VITALS: BP 108/75
[2017-07-17 19:00] VITALS: BP 121/55
[2017-07-17] MEDS ORDERED: furosemide 10 MG/1 ML 10ml inj IV SCH (20:00)
[2017-07-17] MEDS ORDERED: carvedilol 6.25mg tablet PO SCH (20:00)
[2017-07-17] MEDS: atorvastatin 10mg tablet PO SCH (20:25)
[2017-07-17] MEDS: enoxaparin 40mg/0.4ml syringe SUBCUT SCH (20:32)
[2017-07-17] MEDS ORDERED: Permethrin Cream 60gm TP ONE (20:50)
[2017-07-17 23:00] VITALS: BP 104/71
[2017-07-18] MEDS: HYDROcodone/acetaminophen 5mg/325mg tablet PO PRN (01:21)
[2017-07-18 03:00] VITALS: BP 89/58
[2017-07-18 05:49] LABS: BASOPHILS # (AUTO) 0.1 X10'3 (0-0.2); BASOPHILS % (AUTO) 0.7 % (0-1); EOSINOPHILS # (AUTO) 0.3 X10'3 (0-0.9); EOSINOPHILS % (AUTO) 2.2 % (0-6); HEMATOCRIT 35.7 % (42.0-52.0); HEMOGLOBIN 11.9 g/dl (14.0-17.9); LYMPHOCYTES # (AUTO) 1.8 X10'3 (1.1-4.8); MEAN CORPUSCULAR HEMOGLOBIN 32.6 PG (27.0-31.0); MEAN CORPUSCULAR HGB CONC 33.4 % (33.0-36.5); MEAN CORPUSCULAR VOLUME 97.7 FL (78-98); MEAN PLATELET VOLUME 9.3 FL (7.4-10.4); MONOCYTES # (AUTO) 0.7 X10'3 (0-0.9); MONOCYTES % (AUTO) 5.7 % (2-12); NEUTROPHILS # (AUTO) 8.9 X10'3 (1.8-7.7); NEUTROPHILS % (AUTO) 76.4 % (42-75); PLATELET COUNT 332 X10'3 (140-440); RED BLOOD COUNT 3.65 X10'6 (4.70-6.10); RED CELL DISTRIBUTION WIDTH 15.7 % (11.5-14.5); WHITE BLOOD COUNT 11.6 X10'3 (4.5-11.0)
[2017-07-18 06:00] VITALS: BP 92/68
[2017-07-18 06:01] LABS: ALBUMIN 3.4 G/DL (3.4-5.0); ANION GAP 9 (8-16); BLOOD UREA NITROGEN 27 MG/DL (7-18); BUN/CREATININE RATIO 19.4 (5.4-32.0); CALCIUM 8.6 MG/DL (8.5-10.1); CHLORIDE 107 MMOL/L (99-107); CREATININE 1.39 MG/DL (0.60-1.10); GLUCOSE 112 MG/DL (70-104); MAGNESIUM 1.8 MG/DL (1.5-2.4); POTASSIUM 3.6 MMOL/L (3.5-5.1); SODIUM 146 MMOL/L (135-145); TOTAL CARBON DIOXIDE 30.4 MMOL/L (24-32); eGFR 51 ML/MIN
[2017-07-18] MEDS ORDERED: CARV6.253 PO (06:39)
[2017-07-18] MEDS ORDERED: carvedilol 6.25mg tablet PO SCH (06:40)
[2017-07-18 07:03] LABS: % IRON SATURATION 14 % (11-46); IRON 45 UG/DL (53-167); TOTAL IRON BINDING CAPACITY 326 UG/DL (259-388)
[2017-07-18] MEDS: carVEDilol 3.125mg tablet PO SCH ×2 (08:00→20:24)
[2017-07-18] MEDS: atorvastatin 10mg tablet PO SCH (08:07)
[2017-07-18] MEDS: aspirin 81mg tablet.DR PO SCH (08:07)
[2017-07-18] MEDS: multivitamins, therapeutics tablet PO SCH (08:07)
[2017-07-18] MEDS: enoxaparin 40mg/0.4ml syringe SUBCUT SCH (08:09)
[2017-07-18] MEDS: LORazepam 0.5 MG tablet PO PRN ×2 (09:34→20:24)
[2017-07-18 11:00] VITALS: BP 101/67
[2017-07-18] MEDS ORDERED: furosemide 10 MG/1 ML 10ml inj IV SCH (14:00)
[2017-07-18 15:00] VITALS: BP 119/50
[2017-07-18] MEDS: furosemide 20MG tablet PO SCH (15:27)
[2017-07-18 19:00] VITALS: BP 101/68
[2017-07-18 23:00] VITALS: BP 83/53
[2017-07-19 03:00] VITALS: BP 96/67
[2017-07-19 05:22] LABS: BASOPHILS # (AUTO) 0.1 X10'3 (0-0.2); EOSINOPHILS # (AUTO) 0.2 X10'3 (0-0.9); EOSINOPHILS % (AUTO) 2.2 % (0-6); HEMATOCRIT 35.7 % (42.0-52.0); HEMOGLOBIN 11.9 g/dl (14.0-17.9); LYMPHOCYTES # (AUTO) 1.7 X10'3 (1.1-4.8); LYMPHOCYTES % (AUTO) 17.6 % (21-51); MEAN CORPUSCULAR HEMOGLOBIN 32.4 PG (27.0-31.0); MEAN CORPUSCULAR HGB CONC 33.2 % (33.0-36.5); MEAN CORPUSCULAR VOLUME 97.4 FL (78-98); MEAN PLATELET VOLUME 8.8 FL (7.4-10.4); MONOCYTES # (AUTO) 0.7 X10'3 (0-0.9); MONOCYTES % (AUTO) 7.7 % (2-12); NEUTROPHILS # (AUTO) 6.8 X10'3 (1.8-7.7); NEUTROPHILS % (AUTO) 71.5 % (42-75); PLATELET COUNT 284 X10'3 (140-440); RED BLOOD COUNT 3.67 X10'6 (4.70-6.10); RED CELL DISTRIBUTION WIDTH 15.7 % (11.5-14.5); WHITE BLOOD COUNT 9.5 X10'3 (4.5-11.0)
[2017-07-19 05:26] LABS: ALBUMIN 3.2 G/DL (3.4-5.0); ANION GAP 10 (8-16); BLOOD UREA NITROGEN 22 MG/DL (7-18); BUN/CREATININE RATIO 17.3 (5.4-32.0); CALCIUM 8.1 MG/DL (8.5-10.1); CHLORIDE 106 MMOL/L (99-107); CREATININE 1.27 MG/DL (0.60-1.10); GLUCOSE 112 MG/DL (70-104); POTASSIUM 3.9 MMOL/L (3.5-5.1); SODIUM 144 MMOL/L (135-145); TOTAL CARBON DIOXIDE 28.1 MMOL/L (24-32); eGFR 57 ML/MIN
[2017-07-19 06:00] VITALS: BP 95/69
[2017-07-19] MEDS: multivitamins, therapeutics tablet PO SCH (07:45)
[2017-07-19] MEDS: enoxaparin 40mg/0.4ml syringe SUBCUT SCH (07:45)
[2017-07-19] MEDS: aspirin 81mg tablet.DR PO SCH (07:45)
[2017-07-19] MEDS: atorvastatin 10mg tablet PO SCH (07:45)
[2017-07-19] MEDS: carVEDilol 3.125mg tablet PO SCH ×2 (07:46→21:40)
[2017-07-19] MEDS: furosemide 20MG tablet PO SCH (07:46)
[2017-07-19] MEDS ORDERED: insulin Lispro (HumaLOG) vial - multi-dose SQ SCH (09:25)
[2017-07-19] MEDS ORDERED: dextrose 50%-water 50ml dispensing syringe IV PRN ×2 (09:25)
[2017-07-19] MEDS ORDERED: MESSAGE TO PHARMACY PO ONE (09:25)
[2017-07-19] MEDS ORDERED: glucagon, human recombinant 1mg kit SUBCUT PRN (09:25)
[2017-07-19] MEDS ORDERED: dextrose ORAL solution 15 GM/59 ML bottle PO PRN ×2 (09:25)
[2017-07-19] MEDS ORDERED: insulin regular, human vial - multi-dose SQ SCH (09:25)
[2017-07-19 11:00] VITALS: BP 101/71
[2017-07-19] MEDS: citalopram 20mg tablet PO SCH (13:33)
[2017-07-19] MEDS: LORazepam 0.5 MG tablet PO PRN (14:47)
[2017-07-19 15:00] VITALS: BP 109/66
[2017-07-19 19:00] VITALS: BP 107/72
[2017-07-19] MEDS: insulin glargine (Lantus) pen - multi-dose SQ SCH (21:00)
[2017-07-19] MEDS: HYDROcodone/acetaminophen 5mg/325mg tablet PO PRN (21:45)
[2017-07-19 23:00] VITALS: BP 104/66
[2017-07-20] VITALS (7 sets, daily range): BP systolic 95–116; BP diastolic 64–78
[2017-07-20 05:58] LABS: BASOPHILS # (AUTO) 0.1 X10'3 (0-0.2); BASOPHILS % (AUTO) 1.5 % (0-1); EOSINOPHILS # (AUTO) 0.3 X10'3 (0-0.9); EOSINOPHILS % (AUTO) 3.8 % (0-6); HEMATOCRIT 34.8 % (42.0-52.0); HEMOGLOBIN 11.8 g/dl (14.0-17.9); LYMPHOCYTES # (AUTO) 1.9 X10'3 (1.1-4.8); LYMPHOCYTES % (AUTO) 23.9 % (21-51); MEAN CORPUSCULAR HEMOGLOBIN 32.6 PG (27.0-31.0); MEAN CORPUSCULAR HGB CONC 33.9 % (33.0-36.5); MEAN CORPUSCULAR VOLUME 96.3 FL (78-98); MEAN PLATELET VOLUME 8.6 FL (7.4-10.4); MONOCYTES # (AUTO) 0.8 X10'3 (0-0.9); MONOCYTES % (AUTO) 10.3 % (2-12); NEUTROPHILS # (AUTO) 4.8 X10'3 (1.8-7.7); NEUTROPHILS % (AUTO) 60.5 % (42-75); PLATELET COUNT 275 X10'3 (140-440); RED BLOOD COUNT 3.62 X10'6 (4.70-6.10); RED CELL DISTRIBUTION WIDTH 15.8 % (11.5-14.5)
[2017-07-20 06:09] LABS: ALBUMIN 3.3 G/DL (3.4-5.0); ANION GAP 10 (8-16); BLOOD UREA NITROGEN 23 MG/DL (7-18); BUN/CREATININE RATIO 19.7 (5.4-32.0); CALCIUM 8.2 MG/DL (8.5-10.1); CHLORIDE 106 MMOL/L (99-107); CREATININE 1.17 MG/DL (0.60-1.10); GLUCOSE 105 MG/DL (70-104); MAGNESIUM 2.2 MG/DL (1.5-2.4); POTASSIUM 4.1 MMOL/L (3.5-5.1); SODIUM 143 MMOL/L (135-145); TOTAL CARBON DIOXIDE 27.5 MMOL/L (24-32); eGFR 63 ML/MIN
[2017-07-20] MEDS: carVEDilol 3.125mg tablet PO SCH ×2 (08:32→19:44)
[2017-07-20] MEDS: furosemide 20MG tablet PO SCH (08:32)
[2017-07-20] MEDS: citalopram 20mg tablet PO SCH (08:32)
[2017-07-20] MEDS: aspirin 81mg tablet.DR PO SCH (08:32)
[2017-07-20] MEDS: multivitamins, therapeutics tablet PO SCH (08:33)
[2017-07-20] MEDS: atorvastatin 10mg tablet PO SCH (08:33)
[2017-07-20] MEDS: enoxaparin 40mg/0.4ml syringe SUBCUT SCH (08:34)
[2017-07-20] MEDS: insulin glargine (Lantus) pen - multi-dose SQ SCH (20:35)
[2017-07-21] MEDS: HYDROcodone/acetaminophen 5mg/325mg tablet PO PRN (00:59)
[2017-07-21 02:00] VITALS: BP 104/74
[2017-07-21 06:00] VITALS: BP 104/74
[2017-07-21 06:33] LABS: BASOPHILS # (AUTO) 0.1 X10'3 (0-0.2); BASOPHILS % (AUTO) 0.7 % (0-1); EOSINOPHILS # (AUTO) 0.3 X10'3 (0-0.9); EOSINOPHILS % (AUTO) 4.1 % (0-6); HEMATOCRIT 36.6 % (42.0-52.0); HEMOGLOBIN 12.2 g/dl (14.0-17.9); LYMPHOCYTES # (AUTO) 1.5 X10'3 (1.1-4.8); LYMPHOCYTES % (AUTO) 18.6 % (21-51); MEAN CORPUSCULAR HEMOGLOBIN 32.6 PG (27.0-31.0); MEAN CORPUSCULAR HGB CONC 33.3 % (33.0-36.5); MEAN CORPUSCULAR VOLUME 97.9 FL (78-98); MEAN PLATELET VOLUME 8.6 FL (7.4-10.4); MONOCYTES # (AUTO) 0.8 X10'3 (0-0.9); MONOCYTES % (AUTO) 9.8 % (2-12); NEUTROPHILS # (AUTO) 5.4 X10'3 (1.8-7.7); NEUTROPHILS % (AUTO) 66.8 % (42-75); PLATELET COUNT 279 X10'3 (140-440); RED BLOOD COUNT 3.74 X10'6 (4.70-6.10); RED CELL DISTRIBUTION WIDTH 15.7 % (11.5-14.5); WHITE BLOOD COUNT 8.1 X10'3 (4.5-11.0)
[2017-07-21 06:45] LABS: ALBUMIN 3.5 G/DL (3.4-5.0); ANION GAP 9 (8-16); BLOOD UREA NITROGEN 31 MG/DL (7-18); BUN/CREATININE RATIO 26.7 (5.4-32.0); CALCIUM 8.7 MG/DL (8.5-10.1); CHLORIDE 109 MMOL/L (99-107); CREATININE 1.16 MG/DL (0.60-1.10); GLUCOSE 118 MG/DL (70-104); MAGNESIUM 2.2 MG/DL (1.5-2.4); POTASSIUM 4.1 MMOL/L (3.5-5.1); SODIUM 145 MMOL/L (135-145); TOTAL CARBON DIOXIDE 27.1 MMOL/L (24-32); eGFR 63 ML/MIN
[2017-07-21] MEDS: citalopram 20mg tablet PO SCH (07:56)
[2017-07-21] MEDS: atorvastatin 10mg tablet PO SCH (07:57)
[2017-07-21] MEDS: LORazepam 0.5 MG tablet PO PRN (07:57)
[2017-07-21] MEDS: multivitamins, therapeutics tablet PO SCH (07:57)
[2017-07-21] MEDS: furosemide 20MG tablet PO SCH (07:57)
[2017-07-21] MEDS: carVEDilol 3.125mg tablet PO SCH (07:57)
[2017-07-21] MEDS: aspirin 81mg tablet.DR PO SCH (07:57)
[2017-07-21] MEDS: enoxaparin 40mg/0.4ml syringe SUBCUT SCH (07:58)
[2017-07-21] MEDS ORDERED: lisinopril 2.5mg tablet PO SCH (08:00)
[2017-07-21] MEDS ORDERED: POTA10TA36 PO (08:42)
[2017-07-21] MEDS ORDERED: FURO20TA4 PO (08:42)
[2017-07-21] MEDS ORDERED: ASPI-1071 PO (08:42)
[2017-07-21] MEDS ORDERED: CITA-124 PO (08:42)
[2017-07-21] MEDS ORDERED: LISI2.5T2 PO (08:42)
== END 2017-07-21 10:41 | disposition home or self-care (01) | DRG 194 ==
LOC: ER 13:24 → ED HOLD 15:29 → PCU 3S 17:20
PROVIDERS: ADMIT Family Medicine; ATTEND Family Medicine
DX: I13.0 Hypertensive heart and chronic kidney disease with heart failure and stage 1 through stage 4 chronic kidney disease, or unspecified chronic kidney disease (principal); I27.20 Pulmonary hypertension, unspecified; I95.9 Hypotension, unspecified; I42.9 Cardiomyopathy, unspecified; N18.3 Chronic kidney disease, stage 3 (moderate); I08.1 Rheumatic disorders of both mitral and tricuspid valves; D64.9 Anemia, unspecified; I50.43 Acute on chronic combined systolic (congestive) and diastolic (congestive) heart failure; E78.5 Hyperlipidemia, unspecified; R73.9 Hyperglycemia, unspecified; I25.10 Atherosclerotic heart disease of native coronary artery without angina pectoris; F17.200 Nicotine dependence, unspecified, uncomplicated; F15.10 Other stimulant abuse, uncomplicated; Z60.2 Problems related to living alone; J44.9 Chronic obstructive pulmonary disease, unspecified; R73.03 Prediabetes; B19.20 Unspecified viral hepatitis C without hepatic coma; F12.90 Cannabis use, unspecified, uncomplicated; F41.9 Anxiety disorder, unspecified; G89.29 Other chronic pain; M54.9 Dorsalgia, unspecified; R79.89 Other specified abnormal findings of blood chemistry; Z82.5 Family history of asthma and other chronic lower respiratory diseases; Z91.19 Patient's noncompliance with other medical treatment and regimen; Z88.8 Allergy status to other drugs, medicaments and biological substances; Z71.51 Drug abuse counseling and surveillance of drug abuser
CPT/HCPCS: 36415; 71045; 80048; 80053; 80320; 82607; 82746; 82948; 83540; 83550; 83735; 83880; 84443; 84484; 85025; 85610; 85730; 93005; 94640; 94760; 99285; J1650; J1815; J1940

== ENCOUNTER 2017-11-13 09:38 | Inpatient (IN) | payer MEDICARE, MEDICAID ==
[~2017-11-13] VITALS: Ht 167.6 cm; Wt 97.0 kg
[~2017-11-13 09:38] MED LIST changes: -AMLO5TAB4 PO; -ASPI-1 PO; +ASPI-1071 PO; -CARV-49 PO; +CARV6.253 PO; +CITA-124 PO; +FURO20TA4 PO; +LISI2.5T2 PO; +POTA10TA36 PO; -QUET25TA34 PO; -TIOT4MIS5; +TIOT4MIS5 IH
[2017-11-13] MEDS ORDERED: aspirin 81mg tab.chew PO ONE ×2 (09:45→11:10)
[2017-11-13] MEDS ORDERED: nitroGLYCERIN 0.4mg SUBLingual tab SL PRN ×2 (09:45→11:10)
[2017-11-13 10:13] LABS: BASOPHILS # (AUTO) 0.1 X10'3 (0-0.2); BASOPHILS % (AUTO) 0.7 % (0-1); EOSINOPHILS # (AUTO) 0.1 X10'3 (0-0.9); EOSINOPHILS % (AUTO) 0.5 % (0-6); HEMATOCRIT 38.5 % (42.0-52.0); HEMOGLOBIN 12.5 g/dl (14.0-17.9); LYMPHOCYTES % (AUTO) 9.6 % (21-51); MEAN CORPUSCULAR HGB CONC 32.5 % (33.0-36.5); MEAN CORPUSCULAR VOLUME 98.4 FL (78-98); MEAN PLATELET VOLUME 8.8 FL (7.4-10.4); MONOCYTES # (AUTO) 0.5 X10'3 (0-0.9); MONOCYTES % (AUTO) 4.7 % (2-12); NEUTROPHILS # (AUTO) 8.9 X10'3 (1.8-7.7); NEUTROPHILS % (AUTO) 84.5 % (42-75); PLATELET COUNT 373 X10'3 (140-440); RED BLOOD COUNT 3.91 X10'6 (4.70-6.10); RED CELL DISTRIBUTION WIDTH 17.5 % (11.5-14.5); WHITE BLOOD COUNT 10.6 X10'3 (4.5-11.0)
[2017-11-13] MEDS ORDERED: dexamethasone sod phosphate 10mg/ml inj IV STA (10:14)
[2017-11-13 10:15] LABS: ALANINE AMINOTRANSFERASE 81 U/L (12-78); ALBUMIN/GLOBULIN RATIO 0.7 (1.1-1.5); ALKALINE PHOSPHATASE 116 IU/L (46-116); ANION GAP 9 (8-16); ASPARTATE AMINO TRANSFERASE 49 U/L (10-37); BILIRUBIN,TOTAL 1.9 MG/DL (0.1-1.0); BLOOD UREA NITROGEN 26 MG/DL (7-18); BUN/CREATININE RATIO 22.6 (5.4-32.0); CALCIUM 8.1 MG/DL (8.5-10.1); CHLORIDE 104 MMOL/L (99-107); CREATININE 1.15 MG/DL (0.60-1.10); GLUCOSE 109 MG/DL (70-104); POTASSIUM 4.2 MMOL/L (3.5-5.1); SODIUM 143 MMOL/L (135-145); TOTAL CARBON DIOXIDE 29.7 MMOL/L (24-32); TOTAL PROTEIN 7.3 G/DL (6.4-8.2); eGFR 64 ML/MIN
[2017-11-13] MEDS ORDERED: azithromycin 250mg tablet PO ONE (10:15)
[2017-11-13] MEDS ORDERED: CefTRIAXone 2gm/D5W 50ml 50 ML IV ONE (10:15)
[2017-11-13] MEDS ORDERED: ipratropium/albuterol 3ml nebule NEB ONE (10:15)
[2017-11-13 10:25] LABS: MAGNESIUM 2.2 MG/DL (1.5-2.4)
[2017-11-13 11:00] VITALS: BP 102/78
[2017-11-13] MEDS ORDERED: DIGO125T PO (11:03)
[2017-11-13] MEDS ORDERED: AMLO2.5T2 PO (11:03)
[2017-11-13] MEDS ORDERED: AMIT-189 PO (11:08)
[2017-11-13] MEDS ORDERED: ondansetron/PF 4mg/2ml inj IV PRN (11:10)
[2017-11-13] MEDS ORDERED: mag hydrox/Alum hydrox/simeth 30ml oral suspension PO PRN (11:10)
[2017-11-13] MEDS ORDERED: magnesium hydroxide 30ml (MOM) UD suspension PO PRN (11:10)
[2017-11-13] MEDS ORDERED: acetaminophen 325mg tablet PO PRN (11:10)
[2017-11-13] MEDS ORDERED: morphine 2 MG/ML inj. syringe IV PRN (11:10)
[2017-11-13] MEDS ORDERED: ipratropium/albuterol 3ml nebule NEB PRN (11:20)
[2017-11-13 15:00] VITALS: BP 108/66
[2017-11-13 19:00] VITALS: BP 101/78
[2017-11-13] MEDS ORDERED: furosemide 10 MG/1 ML 10ml inj IV SCH (20:00)
[2017-11-13] MEDS: furosemide 40mg tablet PO SCH (20:09)
[2017-11-13] MEDS: carVEDilol 3.125mg tablet PO SCH (20:09)
[2017-11-13] MEDS: amitriptyline 25mg tablet PO SCH (20:09)
[2017-11-13] MEDS: Melatonin 3mg tablet PO PRN (22:29)
[2017-11-13 23:00] VITALS: BP 102/70
[2017-11-14] VITALS (7 sets, daily range): BP systolic 88–132; BP diastolic 54–99
[2017-11-14 06:34] LABS: BASOPHILS % (AUTO) 0 % (0-1); EOSINOPHILS # (AUTO) 0.2 X10'3 (0-0.9); EOSINOPHILS % (AUTO) 1.7 % (0-6); HEMATOCRIT 35.5 % (42.0-52.0); HEMOGLOBIN 11.8 g/dl (14.0-17.9); LYMPHOCYTES # (AUTO) 0.7 X10'3 (1.1-4.8); MEAN CORPUSCULAR HEMOGLOBIN 32.2 PG (27.0-31.0); MEAN CORPUSCULAR HGB CONC 33.1 % (33.0-36.5); MEAN CORPUSCULAR VOLUME 97.3 FL (78-98); MEAN PLATELET VOLUME 9.2 FL (7.4-10.4); MONOCYTES # (AUTO) 0.6 X10'3 (0-0.9); NEUTROPHILS # (AUTO) 10.6 X10'3 (1.8-7.7); NEUTROPHILS % (AUTO) 87.3 % (42-75); PLATELET COUNT 361 X10'3 (140-440); RED BLOOD COUNT 3.65 X10'6 (4.70-6.10); WHITE BLOOD COUNT 12.1 X10'3 (4.5-11.0)
[2017-11-14 06:49] LABS: ALANINE AMINOTRANSFERASE 59 U/L (12-78); ALBUMIN 2.8 G/DL (3.4-5.0); ALBUMIN/GLOBULIN RATIO 0.7 (1.1-1.5); ALKALINE PHOSPHATASE 98 IU/L (46-116); ANION GAP 9 (8-16); ASPARTATE AMINO TRANSFERASE 36 U/L (10-37); BILIRUBIN,TOTAL 0.8 MG/DL (0.1-1.0); BLOOD UREA NITROGEN 30 MG/DL (7-18); BUN/CREATININE RATIO 26.3 (5.4-32.0); CALCIUM 8.4 MG/DL (8.5-10.1); CHLORIDE 104 MMOL/L (99-107); CREATININE 1.14 MG/DL (0.60-1.10); GLUCOSE 130 MG/DL (70-104); MAGNESIUM 2.1 MG/DL (1.5-2.4); PHOSPHORUS 3.5 MG/DL (2.3-4.5); SODIUM 142 MMOL/L (135-145); TOTAL CARBON DIOXIDE 29.3 MMOL/L (24-32); TOTAL PROTEIN 6.9 G/DL (6.4-8.2); eGFR 65 ML/MIN
[2017-11-14 06:56] LABS: POTASSIUM 4.5 MMOL/L (3.5-5.1)
[2017-11-14] MEDS: atorvastatin 10mg tablet PO SCH (07:47)
[2017-11-14] MEDS: aspirin 81mg tablet.DR PO SCH (07:48)
[2017-11-14] MEDS: potassium chloride 10mEq ER tablet PO SCH (07:48)
[2017-11-14] MEDS: enoxaparin 40mg/0.4ml syringe SUBCUT SCH (07:49)
[2017-11-14] MEDS: digoxin 125mcg (0.125mg) tablet PO SCH (07:49)
[2017-11-14] MEDS ORDERED: CefTRIAXone/D5W-Rocephin 1gm 50 ML IV SCH (08:00)
[2017-11-14 11:12] LABS: ABG BASE EXCESS 2.5 mmol/L (-2.0-3.0); ABG OXYGEN SATURATION 94.8 % (95-98); ABG PCO2 (T) 52.9 mmHg (35.0-48.0); ABG PH (T) 7.357 (7.350-7.450); ABG PO2 (T) 84.5 mmHg (83-108); FCOHb 2.6 % (0.5-1.5); FLOW 2 L/min; FO2Hb 92.3 % (94-100); TOTAL HEMOGLOBIN 12.7 G/dl (14.0-18.0)
[2017-11-14] MEDS: carVEDilol 3.125mg tablet PO SCH ×2 (12:03→20:00)
[2017-11-14] MEDS: furosemide 40mg tablet PO SCH ×3 (12:03→20:38)
[2017-11-14] MEDS: levoFLOXACIN 500mg tablet PO SCH (12:03)
[2017-11-14] MEDS: amLODIPine 5mg tablet PO SCH (16:17)
[2017-11-14] MEDS: lactobacillus rhamnosus 10,000 MMU CELLS/CAPSULE PO SCH (19:33)
[2017-11-14] MEDS: amitriptyline 25mg tablet PO SCH (20:38)
[2017-11-15] VITALS (7 sets, daily range): BP systolic 89–123; BP diastolic 49–85
[2017-11-15] MEDS: Melatonin 3mg tablet PO PRN (00:40)
[2017-11-15] MEDS: amLODIPine 5mg tablet PO SCH (08:00)
[2017-11-15] MEDS: atorvastatin 10mg tablet PO SCH (08:04)
[2017-11-15] MEDS: potassium chloride 10mEq ER tablet PO SCH (08:04)
[2017-11-15] MEDS: aspirin 81mg tablet.DR PO SCH (08:04)
[2017-11-15] MEDS: lactobacillus rhamnosus 10,000 MMU CELLS/CAPSULE PO SCH ×2 (08:04→21:05)
[2017-11-15] MEDS: digoxin 125mcg (0.125mg) tablet PO SCH (08:04)
[2017-11-15] MEDS: furosemide 40mg tablet PO SCH ×2 (08:04→14:27)
[2017-11-15] MEDS: carVEDilol 3.125mg tablet PO SCH ×2 (08:05→21:06)
[2017-11-15] MEDS: enoxaparin 40mg/0.4ml syringe SUBCUT SCH (08:06)
[2017-11-15 08:29] LABS: ALANINE AMINOTRANSFERASE 52 U/L (12-78); ALBUMIN 2.7 G/DL (3.4-5.0); ALBUMIN/GLOBULIN RATIO 0.7 (1.1-1.5); ALKALINE PHOSPHATASE 91 IU/L (46-116); ANION GAP 6 (8-16); ASPARTATE AMINO TRANSFERASE 23 U/L (10-37); BILIRUBIN,TOTAL 0.7 MG/DL (0.1-1.0); BLOOD UREA NITROGEN 35 MG/DL (7-18); BUN/CREATININE RATIO 28.5 (5.4-32.0); CALCIUM 8.5 MG/DL (8.5-10.1); CHLORIDE 104 MMOL/L (99-107); CREATININE 1.23 MG/DL (0.60-1.10); GLUCOSE 109 MG/DL (70-104); PHOSPHORUS 3.6 MG/DL (2.3-4.5); POTASSIUM 3.8 MMOL/L (3.5-5.1); SODIUM 143 MMOL/L (135-145); TOTAL CARBON DIOXIDE 32.6 MMOL/L (24-32); TOTAL PROTEIN 6.6 G/DL (6.4-8.2); eGFR 59 ML/MIN
[2017-11-15 09:20] LABS: BASOPHILS # (AUTO) 0.1 X10'3 (0-0.2); BASOPHILS % (AUTO) 0.8 % (0-1); EOSINOPHILS # (AUTO) 0.1 X10'3 (0-0.9); HEMATOCRIT 35.8 % (42.0-52.0); HEMOGLOBIN 11.7 g/dl (14.0-17.9); LYMPHOCYTES # (AUTO) 2.2 X10'3 (1.1-4.8); LYMPHOCYTES % (AUTO) 19.5 % (21-51); MEAN CORPUSCULAR HGB CONC 32.7 % (33.0-36.5); MEAN CORPUSCULAR VOLUME 97.8 FL (78-98); MEAN PLATELET VOLUME 9.6 FL (7.4-10.4); MONOCYTES # (AUTO) 0.6 X10'3 (0-0.9); MONOCYTES % (AUTO) 5.8 % (2-12); NEUTROPHILS # (AUTO) 8.1 X10'3 (1.8-7.7); NEUTROPHILS % (AUTO) 72.9 % (42-75); PLATELET COUNT 356 X10'3 (140-440); RED BLOOD COUNT 3.66 X10'6 (4.70-6.10); RED CELL DISTRIBUTION WIDTH 16.5 % (11.5-14.5); WHITE BLOOD COUNT 11.1 X10'3 (4.5-11.0)
[2017-11-15 09:44] LABS: ANISOCYTOSIS 1+; PLATELET ESTIMATE NORMAL
[2017-11-15] MEDS: levoFLOXACIN 500mg tablet PO SCH (11:29)
[2017-11-15] MEDS: amitriptyline 25mg tablet PO SCH (21:07)
[2017-11-15] MEDS: HYDROcodone/acetaminophen 5mg/325mg tablet PO PRN (21:09)
[2017-11-16] MEDS: HYDROcodone/acetaminophen 5mg/325mg tablet PO PRN (02:55)
[2017-11-16 03:00] VITALS: BP 95/52
[2017-11-16 06:00] VITALS: BP 98/72
[2017-11-16 06:59] LABS: BASOPHILS # (AUTO) 0.1 X10'3 (0-0.2); BASOPHILS % (AUTO) 1.2 % (0-1); EOSINOPHILS # (AUTO) 0.2 X10'3 (0-0.9); HEMATOCRIT 37.5 % (42.0-52.0); HEMOGLOBIN 12.1 g/dl (14.0-17.9); LYMPHOCYTES % (AUTO) 18.1 % (21-51); MEAN CORPUSCULAR HEMOGLOBIN 31.7 PG (27.0-31.0); MEAN CORPUSCULAR HGB CONC 32.1 % (33.0-36.5); MEAN CORPUSCULAR VOLUME 98.7 FL (78-98); MEAN PLATELET VOLUME 8.9 FL (7.4-10.4); MONOCYTES # (AUTO) 0.7 X10'3 (0-0.9); MONOCYTES % (AUTO) 6.5 % (2-12); NEUTROPHILS # (AUTO) 7.8 X10'3 (1.8-7.7); NEUTROPHILS % (AUTO) 72.2 % (42-75); PLATELET COUNT 351 X10'3 (140-440); RED CELL DISTRIBUTION WIDTH 17.2 % (11.5-14.5); WHITE BLOOD COUNT 10.8 X10'3 (4.5-11.0)
[2017-11-16 07:05] LABS: ALANINE AMINOTRANSFERASE 47 U/L (12-78); ALBUMIN 2.7 G/DL (3.4-5.0); ALBUMIN/GLOBULIN RATIO 0.7 (1.1-1.5); ALKALINE PHOSPHATASE 100 IU/L (46-116); ANION GAP 7 (8-16); ASPARTATE AMINO TRANSFERASE 26 U/L (10-37); BILIRUBIN,TOTAL 0.7 MG/DL (0.1-1.0); BLOOD UREA NITROGEN 40 MG/DL (7-18); BUN/CREATININE RATIO 31.3 (5.4-32.0); CALCIUM 8.6 MG/DL (8.5-10.1); CHLORIDE 105 MMOL/L (99-107); CREATININE 1.28 MG/DL (0.60-1.10); GLUCOSE 123 MG/DL (70-104); MAGNESIUM 1.9 MG/DL (1.5-2.4); PHOSPHORUS 4.4 MG/DL (2.3-4.5); SODIUM 145 MMOL/L (135-145); TOTAL CARBON DIOXIDE 32.9 MMOL/L (24-32); TOTAL PROTEIN 6.7 G/DL (6.4-8.2); eGFR 57 ML/MIN
[2017-11-16] MEDS: atorvastatin 10mg tablet PO SCH (07:57)
[2017-11-16] MEDS: potassium chloride 10mEq ER tablet PO SCH (07:57)
[2017-11-16] MEDS: lactobacillus rhamnosus 10,000 MMU CELLS/CAPSULE PO SCH (07:57)
[2017-11-16] MEDS: aspirin 81mg tablet.DR PO SCH (07:57)
[2017-11-16] MEDS: digoxin 125mcg (0.125mg) tablet PO SCH (07:58)
[2017-11-16] MEDS: enoxaparin 40mg/0.4ml syringe SUBCUT SCH (07:59)
[2017-11-16] MEDS: carVEDilol 3.125mg tablet PO SCH (08:00)
[2017-11-16] MEDS ORDERED: furosemide 40mg tablet PO SCH (08:00)
[2017-11-16 11:00] VITALS: BP 94/64
[2017-11-16] MEDS: levoFLOXACIN 500mg tablet PO SCH (11:34)
[2017-11-16 13:15] VITALS: BP 110/68
[2017-11-16] MEDS ORDERED: PRED20TA PO (14:26)
[2017-11-16] MEDS ORDERED: BUDE10.22 INH (14:26)
[2017-11-16] MEDS ORDERED: MELA3TAB PO (14:26)
[2017-11-16] MEDS ORDERED: LEVO500T89 PO (14:26)
[2017-11-16] MEDS ORDERED: LACT1CAP26 PO (14:26)
[2017-11-16] MEDS ORDERED: ALBU8.5H8 INH (14:26)
== END 2017-11-16 15:00 | disposition home health service (06) | DRG 291 ==
LOC: ER 09:38 → ED HOLD 11:07 → PCU 3S 11:50
PROVIDERS: ADMIT Internal Medicine; ATTEND Family Medicine
DX: I13.0 Hypertensive heart and chronic kidney disease with heart failure and stage 1 through stage 4 chronic kidney disease, or unspecified chronic kidney disease (principal); J18.9 Pneumonia, unspecified organism; I50.23 Acute on chronic systolic (congestive) heart failure; R65.10 Systemic inflammatory response syndrome (SIRS) of non-infectious origin without acute organ dysfunction; J44.0 Chronic obstructive pulmonary disease with (acute) lower respiratory infection; J44.1 Chronic obstructive pulmonary disease with (acute) exacerbation; I42.9 Cardiomyopathy, unspecified; E78.00 Pure hypercholesterolemia, unspecified; F12.10 Cannabis abuse, uncomplicated; F17.210 Nicotine dependence, cigarettes, uncomplicated; G89.29 Other chronic pain; I25.10 Atherosclerotic heart disease of native coronary artery without angina pectoris; I34.0 Nonrheumatic mitral (valve) insufficiency; I73.9 Peripheral vascular disease, unspecified; N18.9 Chronic kidney disease, unspecified; S00.83XA Contusion of other part of head, initial encounter; B19.20 Unspecified viral hepatitis C without hepatic coma; E66.01 Morbid (severe) obesity due to excess calories; F15.10 Other stimulant abuse, uncomplicated; F41.9 Anxiety disorder, unspecified; M54.9 Dorsalgia, unspecified; X58.XXXA Exposure to other specified factors, initial encounter; R74.8 Abnormal levels of other serum enzymes; I25.2 Old myocardial infarction; Z79.899 Other long term (current) drug therapy; Z79.82 Long term (current) use of aspirin; Z83.3 Family history of diabetes mellitus; Z68.34 Body mass index [BMI] 34.0-34.9, adult; Z71.6 Tobacco abuse counseling; Y93.89 Activity, other specified; Y92.89 Other specified places as the place of occurrence of the external cause; Y99.8 Other external cause status
CPT/HCPCS: 36415; 36600; 71045; 80053; 80162; 82803; 83605; 83735; 83880; 84100; 84145; 84484; 85018; 85025; 87040; 87070; 93005; 93306; 94640; 94760; 96374; 96375; 99285; J0696; J1100; J1650; J7040

== ENCOUNTER 2017-11-19 06:55 | Inpatient (IN) | payer MEDICARE, MEDICAID ==
[~2017-11-19] VITALS: Ht 167.6 cm; Wt 94.0 kg
[~2017-11-19 06:55] MED LIST changes: +ALBU8.5H8 INH; +AMIT-189 PO; +BUDE10.22 INH; -CITA-124 PO; +DIGO125T PO; -FOLI1TAB16 PO; +LACT1CAP26 PO; +LEVO500T89 PO; -LISI2.5T2 PO; +MELA3TAB PO; -MULT-1179 PO; -NICO-687 TD; +PRED20TA PO; -THI100T PO
[2017-11-19] MEDS ORDERED: ipratropium/albuterol 3ml nebule NEB ONE (07:15)
[2017-11-19] MEDS ORDERED: iohexol 350MG/ML 100ml bottle IV ONE (07:24)
[2017-11-19] MEDS ORDERED: levoFLOXACIN-Levaquin 750MG/D5 150 ML IV ONE (08:10)
[2017-11-19] MEDS ORDERED: normal saline 1000ML IV soln IV ONE (08:10)
[2017-11-19] MEDS ORDERED: cefepime 2g/NS 100ml ADVANTAGE 100 ML IV ONE (08:15)
[2017-11-19 09:00] LABS: HEMATOCRIT 38.2 % (42.0-52.0); HEMOGLOBIN 12.7 g/dl (14.0-17.9); MEAN CORPUSCULAR HEMOGLOBIN 32.5 PG (27.0-31.0); MEAN CORPUSCULAR HGB CONC 33.4 % (33.0-36.5); MEAN CORPUSCULAR VOLUME 97.4 FL (78-98); MEAN PLATELET VOLUME 9.2 FL (7.4-10.4); PLATELET COUNT 326 X10'3 (140-440); RED BLOOD COUNT 3.92 X10'6 (4.70-6.10); RED CELL DISTRIBUTION WIDTH 16.5 % (11.5-14.5); WHITE BLOOD COUNT 18.8 X10'3 (4.5-11.0)
[2017-11-19 09:04] LABS: ALANINE AMINOTRANSFERASE 58 U/L (12-78); ALBUMIN 3.2 G/DL (3.4-5.0); ALBUMIN/GLOBULIN RATIO 0.7 (1.1-1.5); ALKALINE PHOSPHATASE 130 IU/L (46-116); ANION GAP 11 (8-16); ASPARTATE AMINO TRANSFERASE 40 U/L (10-37); BILIRUBIN,TOTAL 1.2 MG/DL (0.1-1.0); BLOOD UREA NITROGEN 30 MG/DL (7-18); BUN/CREATININE RATIO 25.6 (5.4-32.0); CALCIUM 8.6 MG/DL (8.5-10.1); CHLORIDE 105 MMOL/L (99-107); CREATININE 1.17 MG/DL (0.60-1.10); GLUCOSE 136 MG/DL (70-104); POTASSIUM 4.3 MMOL/L (3.5-5.1); SODIUM 143 MMOL/L (135-145); TOTAL CARBON DIOXIDE 27.3 MMOL/L (24-32); TOTAL PROTEIN 7.6 G/DL (6.4-8.2); eGFR 63 ML/MIN
[2017-11-19 09:28] LABS: PARTIAL THROMBOPLASTIN TIME 23 SECONDS (22-32)
[2017-11-19 09:55] LABS: TOTAL CELLS COUNTED 100
[2017-11-19 09:55] LABS: CLARITY,URINE CLEAR (Clear); COLOR,URINE YELLOW (Yellow); GLUCOSE, URINE NEGATIVE (Neg); KETONES,URINE NEGATIVE (Neg); LEUKOCYTE ESTERASE ,URINE NEGATIVE (Neg); NITRITES, URINE NEGATIVE (Neg); OCCULT BLOOD,URINE NEGATIVE (Neg); PROTEIN,URINE 30 mg/dl (Neg); UA COLLECTION TYPE CLN CATCH MIDSTREAM; UROBILINOGEN,URINE 0.2 E.U/dL (0.2-1.0)
[2017-11-19 09:58] LABS: ANISOCYTOSIS 1+; PLATELET ESTIMATE NORMAL
[2017-11-19 10:30] LABS: BACTERIA,URINE NONE SEEN /HPF (Neg); HYALINE CASTS 0-3 /LPF (NEGATIVE); MUCUS STRANDS NONE SEEN /LPF (Neg); RBC,URINE 0-2 /HPF (0-2); SQUAMOUS EPITHELIAL CELL,UR NONE SEEN /LPF (FEW); WBC,URINE 0-4 /HPF (0-4)
[2017-11-19] MEDS ORDERED: LORazepam 2 mg/ml vial IV ONE (10:50)
[2017-11-19] MEDS ORDERED: potassium Cl 20mEq in NS 1,000 ML IV SCH (11:20)
[2017-11-19] MEDS ORDERED: magnesium Cl slow-release 64mg tablet PO PRN (11:20)
[2017-11-19] MEDS ORDERED: HYDROcodone/acetaminophen 5mg/325mg tablet PO PRN (11:20)
[2017-11-19] MEDS ORDERED: magnesium 1gm/100ml D5W IVPB 100 ML IV PRN (11:20)
[2017-11-19] MEDS ORDERED: potassium Cl 40MEQ/NS 500ml 500 ML IV PRN ×2 (11:20)
[2017-11-19] MEDS ORDERED: morphine 2 MG/ML inj. syringe IV PRN ×2 (11:20)
[2017-11-19] MEDS ORDERED: acetaminophen 325mg tablet PO PRN (11:20)
[2017-11-19] MEDS ORDERED: mag hydrox/Alum hydrox/simeth 30ml oral suspension PO PRN (11:20)
[2017-11-19] MEDS ORDERED: magnesium hydroxide 30ml (MOM) UD suspension PO PRN (11:20)
[2017-11-19] MEDS ORDERED: bisacodyl 10mg suppository rectal RC PRN (11:20)
[2017-11-19] MEDS ORDERED: potassium Cl 20 mEq SR tablet PO PRN ×2 (11:20)
[2017-11-19] MEDS ORDERED: magnesium 4gm in 100ml NS 100 ML IV PRN (11:20)
[2017-11-19 12:37] VITALS: BP 122/50
[2017-11-19] MEDS: methylPREDNISolone sod succ 125mg/2ml vial IV SCH ×2 (13:15→20:04)
[2017-11-19] MEDS: ipratropium/albuterol 3ml nebule NEB SCH ×3 (16:29→22:55)
[2017-11-19] MEDS ORDERED: AMIT-106 PO (16:55)
[2017-11-19] MEDS ORDERED: LISI2.5T2 PO (16:55)
[2017-11-19] MEDS ORDERED: ASPI-611 PO (16:55)
[2017-11-19] MEDS ORDERED: ALBU18HF2 IH (16:55)
[2017-11-19] MEDS ORDERED: POTA10TA15 PO (16:55)
[2017-11-19] MEDS ORDERED: CITA20TA27 PO (16:55)
[2017-11-19] MEDS ORDERED: ATOR10TA70 PO (16:55)
[2017-11-19] MEDS ORDERED: FURO-150 PO (17:00)
[2017-11-19] MEDS ORDERED: MELA3TAB PO (17:03)
[2017-11-19] MEDS ORDERED: BUDE10.22 INH (17:04)
[2017-11-19] MEDS ORDERED: LORazepam 0.5 MG tablet PO PRN (18:40)
[2017-11-19] MEDS ORDERED: normal saline 1000ml 1,000 ML IV SCH ×2 (18:40)
[2017-11-19 19:00] VITALS: BP 124/81
[2017-11-19] MEDS ORDERED: albuterol 2.5 MG/3 ML nebule NEB PRN (19:05)
[2017-11-19] MEDS ORDERED: Melatonin 3mg tablet PO PRN (19:10)
[2017-11-19] MEDS ORDERED: furosemide 20 MG/2 ML vial IV SCH (20:00)
[2017-11-19] MEDS: amitriptyline 25mg tablet PO SCH (20:03)
[2017-11-19] MEDS: docusate sod 100mg capsule PO SCH (20:03)
[2017-11-19] MEDS: atorvastatin 10mg tablet PO SCH (20:03)
[2017-11-19] MEDS: heparin, porcine 5000 units/ml vial SQ SCH (20:04)
[2017-11-19] MEDS: carVEDilol 3.125mg tablet PO SCH (20:04)
[2017-11-19 22:00] VITALS: BP 122/84
[2017-11-19 23:15] LABS: ABG BASE EXCESS -0.5 mmol/L (-2.0-3.0); ABG OXYGEN SATURATION 94.5 % (95-98); ABG PCO2 (T) 50.1 mmHg (35.0-48.0); ABG PH (T) 7.332 (7.350-7.450); FCOHb 1.2 % (0.5-1.5); FLOW 2 L/min; FMetHb 0.1 % (0.3-1.12); FO2Hb 93.3 % (94-100); PATIENT TEMPERATURE 36.8; TOTAL HEMOGLOBIN 12.3 G/dl (14.0-18.0)
[2017-11-19] MEDS ORDERED: LORazepam 2 mg/ml vial IM ONE (23:25)
[2017-11-19] MEDS ORDERED: haloperidol lactate 5mg/ml inj IM PRN (23:30)
[2017-11-20] VITALS (7 sets, daily range): BP systolic 105–119; BP diastolic 70–82
[2017-11-20] MEDS: methylPREDNISolone sod succ 125mg/2ml vial IV SCH ×3 (01:05→16:13)
[2017-11-20] MEDS: ipratropium/albuterol 3ml nebule NEB SCH ×6 (02:51→23:16)
[2017-11-20] MEDS: aspirin 81mg tab.chew PO SCH (07:45)
[2017-11-20] MEDS: digoxin 125mcg (0.125mg) tablet PO SCH (07:46)
[2017-11-20] MEDS: docusate sod 100mg capsule PO SCH ×2 (07:46→20:43)
[2017-11-20] MEDS: lisinopril 2.5mg tablet PO SCH (07:47)
[2017-11-20] MEDS: potassium chloride 10mEq ER tablet PO SCH (07:47)
[2017-11-20] MEDS: carVEDilol 3.125mg tablet PO SCH ×2 (07:47→20:43)
[2017-11-20] MEDS: citalopram 20mg tablet PO SCH (07:47)
[2017-11-20] MEDS: heparin, porcine 5000 units/ml vial SQ SCH ×2 (07:48→20:43)
[2017-11-20] MEDS: CefTRIAXone/D5W-Rocephin 1gm 50 ML IV SCH (07:49)
[2017-11-20] MEDS: levoFLOXACIN-Levaquin 750MG/D5 150 ML IV SCH (07:49)
[2017-11-20] MEDS: K and/or MAG REPLACEMENT MC SCH (08:00)
[2017-11-20 08:28] LABS: BASOPHILS # (AUTO) 0.1 X10'3 (0-0.2); BASOPHILS % (AUTO) 0.7 % (0-1); EOSINOPHILS % (AUTO) 0.1 % (0-6); HEMOGLOBIN 11.7 g/dl (14.0-17.9); LYMPHOCYTES # (AUTO) 0.7 X10'3 (1.1-4.8); LYMPHOCYTES % (AUTO) 5.1 % (21-51); MEAN CORPUSCULAR HEMOGLOBIN 32.7 PG (27.0-31.0); MEAN CORPUSCULAR HGB CONC 33.5 % (33.0-36.5); MEAN CORPUSCULAR VOLUME 97.6 FL (78-98); MEAN PLATELET VOLUME 9.1 FL (7.4-10.4); MONOCYTES # (AUTO) 0.2 X10'3 (0-0.9); MONOCYTES % (AUTO) 1.7 % (2-12); NEUTROPHILS # (AUTO) 12.6 X10'3 (1.8-7.7); NEUTROPHILS % (AUTO) 92.4 % (42-75); PLATELET COUNT 330 X10'3 (140-440); RED BLOOD COUNT 3.59 X10'6 (4.70-6.10); RED CELL DISTRIBUTION WIDTH 15.9 % (11.5-14.5); WHITE BLOOD COUNT 13.6 X10'3 (4.5-11.0)
[2017-11-20 08:43] LABS: ALBUMIN 2.7 G/DL (3.4-5.0); ANION GAP 7 (8-16); BLOOD UREA NITROGEN 31 MG/DL (7-18); BUN/CREATININE RATIO 25.6 (5.4-32.0); CALCIUM 8.4 MG/DL (8.5-10.1); CHLORIDE 107 MMOL/L (99-107); CREATININE 1.21 MG/DL (0.60-1.10); GLUCOSE 178 MG/DL (70-104); SODIUM 142 MMOL/L (135-145); TOTAL CARBON DIOXIDE 28.3 MMOL/L (24-32); eGFR 60 ML/MIN
[2017-11-20] MEDS: HYDROcodone/acetaminophen 10/325mg tab PO PRN ×2 (10:39→20:51)
[2017-11-20] MEDS: pantoprazole 40mg Tablet.DR PO SCH (13:56)
[2017-11-20] MEDS: lactobacillus rhamnosus 10,000 MMU CELLS/CAPSULE PO SCH (20:43)
[2017-11-20] MEDS: amitriptyline 25mg tablet PO SCH (20:43)
[2017-11-20] MEDS: atorvastatin 10mg tablet PO SCH (20:43)
[2017-11-20] MEDS ORDERED: LORazepam 1 MG tablet PO ONE (22:35)
[2017-11-21] MEDS: methylPREDNISolone sod succ 125mg/2ml vial IV SCH ×2 (00:39→07:43)
[2017-11-21 03:00] VITALS: BP 119/89
[2017-11-21] MEDS: ipratropium/albuterol 3ml nebule NEB SCH ×3 (03:15→11:32)
[2017-11-21 06:09] LABS: ALBUMIN 2.7 G/DL (3.4-5.0); ANION GAP 11 (8-16); BLOOD UREA NITROGEN 42 MG/DL (7-18); BUN/CREATININE RATIO 34.1 (5.4-32.0); CALCIUM 8.2 MG/DL (8.5-10.1); CHLORIDE 102 MMOL/L (99-107); CREATININE 1.23 MG/DL (0.60-1.10); GLUCOSE 238 MG/DL (70-104); SODIUM 137 MMOL/L (135-145); TOTAL CARBON DIOXIDE 24.1 MMOL/L (24-32); eGFR 59 ML/MIN
[2017-11-21 07:00] VITALS: BP 122/86
[2017-11-21] MEDS: lisinopril 2.5mg tablet PO SCH (07:42)
[2017-11-21] MEDS: carVEDilol 3.125mg tablet PO SCH (07:42)
[2017-11-21] MEDS: docusate sod 100mg capsule PO SCH (07:43)
[2017-11-21] MEDS: lactobacillus rhamnosus 10,000 MMU CELLS/CAPSULE PO SCH (07:43)
[2017-11-21] MEDS: potassium chloride 10mEq ER tablet PO SCH (07:43)
[2017-11-21] MEDS: aspirin 81mg tab.chew PO SCH (07:43)
[2017-11-21] MEDS: citalopram 20mg tablet PO SCH (07:44)
[2017-11-21] MEDS: digoxin 125mcg (0.125mg) tablet PO SCH (07:44)
[2017-11-21] MEDS: pantoprazole 40mg Tablet.DR PO SCH (07:44)
[2017-11-21] MEDS: heparin, porcine 5000 units/ml vial SQ SCH (07:45)
[2017-11-21] MEDS: CefTRIAXone/D5W-Rocephin 1gm 50 ML IV SCH (07:45)
[2017-11-21] MEDS: levoFLOXACIN-Levaquin 750MG/D5 150 ML IV SCH (07:45)
[2017-11-21] MEDS: K and/or MAG REPLACEMENT MC SCH (08:00)
[2017-11-21 09:28] LABS: HEMOGLOBIN A1C 6.5 % (4.5-6.2)
[2017-11-21 11:00] VITALS: BP 115/94
[2017-11-21] MEDS ORDERED: PANT40TA4 PO (11:39)
[2017-11-21] MEDS ORDERED: LEVO750T21 PO (11:39)
[2017-11-21] MEDS ORDERED: PRED10TA23 PO (11:39)
== END 2017-11-21 13:05 | disposition home health service (06) | DRG 871 ==
LOC: ER 06:55 → ED HOLD 11:20 → SUR 3N 12:28 → PCU 3S 23:43
PROVIDERS: ADMIT Internal Medicine; ATTEND Internal Medicine
PROC: 5A09357 Assistance with Respiratory Ventilation, Less than 24 Consecutive Hours, Continuous Positive Airway Pressure (ICD-10-PCS; principal; 2017-11-20)
PROC: 3E02340 Introduction of Influenza Vaccine into Muscle, Percutaneous Approach (ICD-10-PCS; 2017-11-20)
DX: A41.9 Sepsis, unspecified organism (principal); I50.23 Acute on chronic systolic (congestive) heart failure; J18.9 Pneumonia, unspecified organism; J96.02 Acute respiratory failure with hypercapnia; J44.1 Chronic obstructive pulmonary disease with (acute) exacerbation; J44.0 Chronic obstructive pulmonary disease with (acute) lower respiratory infection; G93.40 Encephalopathy, unspecified; F15.10 Other stimulant abuse, uncomplicated; E78.00 Pure hypercholesterolemia, unspecified; F17.210 Nicotine dependence, cigarettes, uncomplicated; F41.9 Anxiety disorder, unspecified; I11.0 Hypertensive heart disease with heart failure; I25.10 Atherosclerotic heart disease of native coronary artery without angina pectoris; I73.9 Peripheral vascular disease, unspecified; Z23 Encounter for immunization
CPT/HCPCS: 36415; 36600; 71046; 71275; 80048; 80053; 81001; 82803; 82948; 83036; 83605; 83735; 83880; 84145; 84484; 85018; 85025; 85610; 85730; 87040; 93005; 94640; 94660; 94760; 96365; 96366; 96368; 96375; 97110; 97116; 97162; 99285; J0692; J0696; J1630; J1644; J1956; J2060; J2270; J2930; J7030; Q2037; Q9967

== ENCOUNTER 2017-12-08 10:27 | Emergency (ER) | payer MEDICARE, MEDICAID ==
[~2017-12-08] VITALS: Ht 167.6 cm; Wt 104.0 kg
[~2017-12-08 10:27] MED LIST changes: +ALBU18HF2 IH; -ALBU8.5H8 INH; +AMIT-106 PO; -AMIT-189 PO; -ASPI-1071 PO; +ASPI-611 PO; -ATOR10TA PO; +ATOR10TA70 PO; +CITA20TA27 PO; +FURO-150 PO; -FURO20TA4 PO; -LACT1CAP26 PO; -LEVO500T89 PO; +LISI2.5T2 PO; +PANT40TA4 PO; +POTA10TA15 PO; -POTA10TA36 PO; +PRED10TA23 PO; -PRED20TA PO
[2017-12-08 11:11] LABS: BASOPHILS # (AUTO) 0.1 X10'3 (0-0.2); BASOPHILS % (AUTO) 0.9 % (0-1); EOSINOPHILS # (AUTO) 0.2 X10'3 (0-0.9); EOSINOPHILS % (AUTO) 1.7 % (0-6); HEMOGLOBIN 13.1 g/dl (14.0-17.9); LYMPHOCYTES # (AUTO) 1.6 X10'3 (1.1-4.8); LYMPHOCYTES % (AUTO) 15.1 % (21-51); MEAN CORPUSCULAR HEMOGLOBIN 31.9 PG (27.0-31.0); MEAN CORPUSCULAR VOLUME 99.5 FL (78-98); MEAN PLATELET VOLUME 8.9 FL (7.4-10.4); MONOCYTES # (AUTO) 0.6 X10'3 (0-0.9); MONOCYTES % (AUTO) 5.7 % (2-12); NEUTROPHILS # (AUTO) 7.9 X10'3 (1.8-7.7); NEUTROPHILS % (AUTO) 76.6 % (42-75); PLATELET COUNT 230 X10'3 (140-440); RED BLOOD COUNT 4.12 X10'6 (4.70-6.10); RED CELL DISTRIBUTION WIDTH 18.1 % (11.5-14.5); WHITE BLOOD COUNT 10.3 X10'3 (4.5-11.0)
[2017-12-08 11:16] LABS: ALANINE AMINOTRANSFERASE 57 U/L (12-78); ALBUMIN/GLOBULIN RATIO 0.8 (1.1-1.5); ALKALINE PHOSPHATASE 180 IU/L (46-116); ANION GAP 11 (8-16); ASPARTATE AMINO TRANSFERASE 37 U/L (10-37); BLOOD UREA NITROGEN 27 MG/DL (7-18); BUN/CREATININE RATIO 20.3 (5.4-32.0); CALCIUM 8.2 MG/DL (8.5-10.1); CHLORIDE 106 MMOL/L (99-107); CREATININE 1.33 MG/DL (0.60-1.10); GLUCOSE 120 MG/DL (70-104); POTASSIUM 4.5 MMOL/L (3.5-5.1); SODIUM 143 MMOL/L (135-145); TOTAL CARBON DIOXIDE 26.3 MMOL/L (24-32); TOTAL PROTEIN 6.8 G/DL (6.4-8.2); eGFR 54 ML/MIN
[2017-12-08] MEDS ORDERED: furosemide 10 MG/1 ML 10ml inj IV ONE (12:10)
[2017-12-08 12:26] VITALS: BP 126/91
== END 2017-12-08 12:28 | disposition home or self-care (01) ==
LOC: ER 10:28
DX: I11.0 Hypertensive heart disease with heart failure (principal); I50.9 Heart failure, unspecified; F17.200 Nicotine dependence, unspecified, uncomplicated; I25.10 Atherosclerotic heart disease of native coronary artery without angina pectoris; J44.9 Chronic obstructive pulmonary disease, unspecified; G89.29 Other chronic pain; F12.90 Cannabis use, unspecified, uncomplicated; F15.90 Other stimulant use, unspecified, uncomplicated; Z79.82 Long term (current) use of aspirin; Z79.899 Other long term (current) drug therapy
CPT/HCPCS: 36415; 71045; 80053; 83880; 85025; 93005; 96374; 99285; J1940

== ENCOUNTER 2017-12-14 10:57 | Emergency (ER) | payer MEDICARE, MEDICAID ==
[~2017-12-14] VITALS: Ht 167.6 cm; Wt 105.4 kg
[2017-12-14] MEDS ORDERED: potassium Cl 20 mEq SR tablet PO STA (12:04)
[2017-12-14] MEDS ORDERED: furosemide 20MG tablet PO ONE (12:05)
[2017-12-14 12:31] LABS: BASOPHILS # (AUTO) 0.1 X10'3 (0-0.2); BASOPHILS % (AUTO) 0.7 % (0-1); EOSINOPHILS # (AUTO) 0.1 X10'3 (0-0.9); EOSINOPHILS % (AUTO) 0.6 % (0-6); HEMATOCRIT 44.7 % (42.0-52.0); HEMOGLOBIN 14.4 g/dl (14.0-17.9); LYMPHOCYTES # (AUTO) 1.1 X10'3 (1.1-4.8); LYMPHOCYTES % (AUTO) 10.4 % (21-51); MEAN CORPUSCULAR HEMOGLOBIN 31.9 PG (27.0-31.0); MEAN CORPUSCULAR HGB CONC 32.1 % (33.0-36.5); MEAN CORPUSCULAR VOLUME 99.3 FL (78-98); MONOCYTES # (AUTO) 0.6 X10'3 (0-0.9); MONOCYTES % (AUTO) 5.5 % (2-12); NEUTROPHILS # (AUTO) 8.9 X10'3 (1.8-7.7); NEUTROPHILS % (AUTO) 82.8 % (42-75); PLATELET COUNT 235 X10'3 (140-440); RED CELL DISTRIBUTION WIDTH 18.5 % (11.5-14.5); WHITE BLOOD COUNT 10.7 X10'3 (4.5-11.0)
[2017-12-14 12:43] LABS: ALANINE AMINOTRANSFERASE 101 U/L (12-78); ALBUMIN 3.3 G/DL (3.4-5.0); ALBUMIN/GLOBULIN RATIO 0.8 (1.1-1.5); ALKALINE PHOSPHATASE 201 IU/L (46-116); ANION GAP 13 (8-16); ASPARTATE AMINO TRANSFERASE 93 U/L (10-37); BILIRUBIN,TOTAL 2.8 MG/DL (0.1-1.0); BLOOD UREA NITROGEN 34 MG/DL (7-18); BUN/CREATININE RATIO 24.8 (5.4-32.0); CALCIUM 8.9 MG/DL (8.5-10.1); CHLORIDE 102 MMOL/L (99-107); CREATININE 1.37 MG/DL (0.60-1.10); GLUCOSE 127 MG/DL (70-104); POTASSIUM 4.2 MMOL/L (3.5-5.1); SODIUM 139 MMOL/L (135-145); TOTAL CARBON DIOXIDE 24.5 MMOL/L (24-32); TOTAL PROTEIN 7.3 G/DL (6.4-8.2); eGFR 52 ML/MIN
[2017-12-14 12:52] LABS: PLATELET ESTIMATE NORMAL
[2017-12-14 12:53] VITALS: BP 148/105
[2017-12-14 12:57] LABS: ANISOCYTOSIS 2+
== END 2017-12-14 14:32 | disposition home or self-care (01) ==
LOC: ER 10:57
DX: N50.89 Other specified disorders of the male genital organs (principal); R60.0 Localized edema; I11.0 Hypertensive heart disease with heart failure; I50.9 Heart failure, unspecified; I25.10 Atherosclerotic heart disease of native coronary artery without angina pectoris; E78.00 Pure hypercholesterolemia, unspecified; J44.9 Chronic obstructive pulmonary disease, unspecified; G89.29 Other chronic pain; F12.90 Cannabis use, unspecified, uncomplicated; F15.90 Other stimulant use, unspecified, uncomplicated; Z98.890 Other specified postprocedural states; Z87.01 Personal history of pneumonia (recurrent); Z79.82 Long term (current) use of aspirin; Z79.899 Other long term (current) drug therapy
CPT/HCPCS: 36415; 80053; 83880; 85025; 99284

== ENCOUNTER 2017-12-17 10:57 | Inpatient (IN) | payer MEDICARE, MEDICAID ==
[~2017-12-17] VITALS: Ht 142.2 cm; Wt 111.6 kg
[2017-12-17 12:21] LABS: BASOPHILS % (AUTO) 0.2 % (0-1); EOSINOPHILS % (AUTO) 0 % (0-6); HEMATOCRIT 41.9 % (42.0-52.0); HEMOGLOBIN 13.6 g/dl (14.0-17.9); LYMPHOCYTES % (AUTO) 7.1 % (21-51); MEAN CORPUSCULAR HEMOGLOBIN 31.8 PG (27.0-31.0); MEAN CORPUSCULAR HGB CONC 32.5 % (33.0-36.5); MEAN CORPUSCULAR VOLUME 97.9 FL (78-98); MEAN PLATELET VOLUME 9.7 FL (7.4-10.4); MONOCYTES # (AUTO) 0.9 X10'3 (0-0.9); MONOCYTES % (AUTO) 6.6 % (2-12); NEUTROPHILS # (AUTO) 11.6 X10'3 (1.8-7.7); NEUTROPHILS % (AUTO) 86.1 % (42-75); PLATELET COUNT 145 X10'3 (140-440); RED BLOOD COUNT 4.27 X10'6 (4.70-6.10); RED CELL DISTRIBUTION WIDTH 17.7 % (11.5-14.5); WHITE BLOOD COUNT 13.5 X10'3 (4.5-11.0)
[2017-12-17 12:30] LABS: ALANINE AMINOTRANSFERASE 567 U/L (12-78); ALBUMIN 3.1 G/DL (3.4-5.0); ALBUMIN/GLOBULIN RATIO 0.9 (1.1-1.5); ALKALINE PHOSPHATASE 230 IU/L (46-116); ANION GAP 14 (8-16); ASPARTATE AMINO TRANSFERASE 793 U/L (10-37); BILIRUBIN,TOTAL 3.6 MG/DL (0.1-1.0); BLOOD UREA NITROGEN 63 MG/DL (7-18); BUN/CREATININE RATIO 31.7 (5.4-32.0); CALCIUM 8.2 MG/DL (8.5-10.1); CHLORIDE 93 MMOL/L (99-107); CREATININE 1.99 MG/DL (0.60-1.10); GLUCOSE 124 MG/DL (70-104); SODIUM 129 MMOL/L (135-145); TOTAL PROTEIN 6.6 G/DL (6.4-8.2); eGFR 34 ML/MIN
[2017-12-17 12:31] LABS: ETHANOL < 0.010 GM/DL (0.0-0.010); INR 1.6 INR; PARTIAL THROMBOPLASTIN TIME 28 SECONDS (22-32); PROTHROMBIN TIME 15.8 SECONDS (9.0-12.0)
[2017-12-17 12:42] LABS: TROPONIN I 0.31 NG/ML (0.0-0.05)
[2017-12-17] MEDS ORDERED: CefTRIAXone 2gm/D5W 50ml 50 ML IV ONE (13:20)
[2017-12-17] MEDS ORDERED: furosemide 10 MG/1 ML 10ml inj IV ONE (14:40)
[2017-12-17] MEDS ORDERED: lactulose 20gm/30ml cup PO ONE (14:40)
[2017-12-17 17:21] LABS: CLARITY,URINE CLEAR (Clear); COLOR,URINE YELLOW (Yellow); GLUCOSE, URINE NEGATIVE (Neg); KETONES,URINE NEGATIVE (Neg); LEUKOCYTE ESTERASE ,URINE NEGATIVE (Neg); NITRITES, URINE NEGATIVE (Neg); OCCULT BLOOD,URINE NEGATIVE (Neg); PH,URINE 5.5 (4.8-8.0); PROTEIN,URINE NEGATIVE (Neg); UROBILINOGEN,URINE 0.2 E.U/dL (0.2-1.0)
[2017-12-17 17:22] LABS: UA COLLECTION TYPE VOIDED
[2017-12-17 17:32] LABS: URINE AMPHETAMINE SCREEN NEGATIVE (Neg); URINE BARBITUATE SCREEN NEGATIVE (Neg); URINE BENZODIAZEPINES SCREEN NEGATIVE (Neg); URINE CANNABINOID SCREEN NEGATIVE (Neg); URINE COCAINE SCREEN NEGATIVE (Neg); URINE METHADONE SCREEN NEGATIVE (Neg); URINE OPIATE SCREEN NEGATIVE (Neg); URINE PHENCYCLIDINE SCREEN NEGATIVE (Neg)
[2017-12-17] MEDS ORDERED: acetaminophen 650mg rectal suppository RC PRN (19:15)
[2017-12-17] MEDS ORDERED: ondansetron/PF 4mg/2ml inj IV PRN (19:15)
[2017-12-17] MEDS ORDERED: acetaminophen 325mg tablet PO PRN ×2 (19:15)
[2017-12-17] MEDS ORDERED: albumin (human) 25% 100ml IV 100 ML IV PRN (19:15)
[2017-12-17] MEDS ORDERED: heparin, porcine 5000 units/ml vial SQ SCH (20:00)
[2017-12-17 20:09] LABS: ALANINE AMINOTRANSFERASE 563 U/L (12-78); ALBUMIN 2.9 G/DL (3.4-5.0); ALBUMIN/GLOBULIN RATIO 0.8 (1.1-1.5); ALKALINE PHOSPHATASE 222 IU/L (46-116); ANION GAP 16 (8-16); ASPARTATE AMINO TRANSFERASE 673 U/L (10-37); BILIRUBIN,TOTAL 2.7 MG/DL (0.1-1.0); BLOOD UREA NITROGEN 63 MG/DL (7-18); BUN/CREATININE RATIO 33.9 (5.4-32.0); CALCIUM 8.2 MG/DL (8.5-10.1); CHLORIDE 94 MMOL/L (99-107); CREATININE 1.86 MG/DL (0.60-1.10); GLUCOSE 130 MG/DL (70-104); MAGNESIUM 2.1 MG/DL (1.5-2.4); PHOSPHORUS 5.5 MG/DL (2.3-4.5); POTASSIUM 4.3 MMOL/L (3.5-5.1); SODIUM 132 MMOL/L (135-145); TOTAL CARBON DIOXIDE 22.5 MMOL/L (24-32); TOTAL PROTEIN 6.4 G/DL (6.4-8.2); eGFR 37 ML/MIN
[2017-12-17] MEDS: ipratropium/albuterol 3ml nebule IH SCH (20:52)
[2017-12-17 21:00] VITALS: BP 121/81
[2017-12-17] MEDS: docusate sod 100mg capsule PO SCH (21:13)
[2017-12-17 22:00] VITALS: BP 119/84
[2017-12-17] MEDS: carVEDilol 3.125mg tablet PO SCH (22:05)
[2017-12-17 23:00] VITALS: BP 126/77
[2017-12-18] VITALS (26 sets, daily range): BP systolic 74–125; BP diastolic 46–81
[2017-12-18] MEDS: lactulose 20gm/30ml cup PO SCH ×4 (00:44→22:55)
[2017-12-18 02:19] LABS: BASOPHILS % (AUTO) 0.1 % (0-1); EOSINOPHILS % (AUTO) 0 % (0-6); HEMATOCRIT 36.3 % (42.0-52.0); HEMOGLOBIN 11.9 g/dl (14.0-17.9); LYMPHOCYTES # (AUTO) 0.5 X10'3 (1.1-4.8); LYMPHOCYTES % (AUTO) 4.8 % (21-51); MEAN CORPUSCULAR HGB CONC 32.7 % (33.0-36.5); MEAN CORPUSCULAR VOLUME 98.1 FL (78-98); MEAN PLATELET VOLUME 9.8 FL (7.4-10.4); MONOCYTES # (AUTO) 0.6 X10'3 (0-0.9); MONOCYTES % (AUTO) 5.6 % (2-12); NEUTROPHILS # (AUTO) 9.3 X10'3 (1.8-7.7); NEUTROPHILS % (AUTO) 89.5 % (42-75); PLATELET COUNT 121 X10'3 (140-440); RED CELL DISTRIBUTION WIDTH 17.3 % (11.5-14.5); WHITE BLOOD COUNT 10.4 X10'3 (4.5-11.0)
[2017-12-18 02:34] LABS: ALANINE AMINOTRANSFERASE 448 U/L (12-78); ALBUMIN 2.5 G/DL (3.4-5.0); ALBUMIN/GLOBULIN RATIO 0.8 (1.1-1.5); ALKALINE PHOSPHATASE 186 IU/L (46-116); ANION GAP 8 (8-16); ASPARTATE AMINO TRANSFERASE 459 U/L (10-37); BILIRUBIN,TOTAL 1.9 MG/DL (0.1-1.0); BLOOD UREA NITROGEN 63 MG/DL (7-18); BUN/CREATININE RATIO 38.2 (5.4-32.0); CALCIUM 8.4 MG/DL (8.5-10.1); CHLORIDE 96 MMOL/L (99-107); CREATININE 1.65 MG/DL (0.60-1.10); GLUCOSE 140 MG/DL (70-104); MAGNESIUM 2.1 MG/DL (1.5-2.4); PHOSPHORUS 5.1 MG/DL (2.3-4.5); POTASSIUM 4.2 MMOL/L (3.5-5.1); SODIUM 130 MMOL/L (135-145); TOTAL CARBON DIOXIDE 25.6 MMOL/L (24-32); TOTAL PROTEIN 5.5 G/DL (6.4-8.2); eGFR 42 ML/MIN
[2017-12-18 02:41] LABS: INR 1.6 INR; PROTHROMBIN TIME 15.4 SECONDS (9.0-12.0)
[2017-12-18 02:42] LABS: PARTIAL THROMBOPLASTIN TIME 31 SECONDS (22-32)
[2017-12-18] MEDS: ipratropium/albuterol 3ml nebule IH SCH ×4 (02:55→21:24)
[2017-12-18 02:58] LABS: NUCLEATED RED BLOOD CELLS 3 /100WBC (0-0); TOTAL CELLS COUNTED 100
[2017-12-18 02:59] LABS: ANISOCYTOSIS 1+; PLATELET ESTIMATE DECREASED
[2017-12-18] MEDS ORDERED: amitriptyline 25mg tablet PO ONE (03:05)
[2017-12-18 03:15] LABS: AMYLASE 42 U/L (25-115); LIPASE 100 U/L (73-393)
[2017-12-18] MEDS ORDERED: simethicone 80mg chew tab PO ONE (03:40)
[2017-12-18] MEDS ORDERED: fentaNYL/PF 50MCG/1 ML 2ML syringe IV ONE (06:15)
[2017-12-18] MEDS ORDERED: HYDROcodone/acetaminophen 5mg/325mg tablet PO ONE (06:30)
[2017-12-18] MEDS: docusate sod 100mg capsule PO SCH ×2 (08:00→18:44)
[2017-12-18] MEDS: pantoprazole 40 MG vial IV SCH (08:00)
[2017-12-18] MEDS: digoxin 125mcg (0.125mg) tablet PO SCH (08:00)
[2017-12-18] MEDS: carVEDilol 3.125mg tablet PO SCH ×2 (08:00→18:44)
[2017-12-18] MEDS: aspirin 81mg tablet.DR PO SCH (08:00)
[2017-12-18] MEDS: atorvastatin 10mg tablet PO SCH (08:00)
[2017-12-18] MEDS ORDERED: normal saline 1000ml 1,000 ML IV ONE (09:45)
[2017-12-18] MEDS ORDERED: phytonadione inj. 10 MG in normal saline 100ml IV soln 99 ML IV ONE (09:45)
[2017-12-18] MEDS: BUDESONIDE 0.25 MG/2 ML AMPUL.NEB IH SCH ×2 (10:14→21:24)
[2017-12-18] MEDS ORDERED: LIDOcaine 1% (10mg/ml) 2ml vial ONE (10:26)
[2017-12-18] MEDS ORDERED: DOBUTamine-DoBUTrex 500mg/D5W 250 ML IV ONE (10:44)
[2017-12-18 11:01] LABS: OXYGEN SATURATION (MIXED VEN) 51.3 % (60-80); PO2 MIXED VENOUS (TEMP COR) 30.3 mmHg (35-46)
[2017-12-18 11:09] LABS: BASOPHILS % (AUTO) 0.1 % (0-1); EOSINOPHILS % (AUTO) 0 % (0-6); HEMATOCRIT 46.2 % (42.0-52.0); HEMOGLOBIN 15.1 g/dl (14.0-17.9); LYMPHOCYTES # (AUTO) 0.1 X10'3 (1.1-4.8); LYMPHOCYTES % (AUTO) 2.3 % (21-51); MEAN CORPUSCULAR HEMOGLOBIN 31.9 PG (27.0-31.0); MEAN CORPUSCULAR HGB CONC 32.7 % (33.0-36.5); MEAN CORPUSCULAR VOLUME 97.5 FL (78-98); MEAN PLATELET VOLUME 9.4 FL (7.4-10.4); MONOCYTES # (AUTO) 0.2 X10'3 (0-0.9); NEUTROPHILS % (AUTO) 94.6 % (42-75); PLATELET COUNT 124 X10'3 (140-440); RED BLOOD COUNT 4.74 X10'6 (4.70-6.10); RED CELL DISTRIBUTION WIDTH 18.1 % (11.5-14.5); WHITE BLOOD COUNT 5.3 X10'3 (4.5-11.0)
[2017-12-18 11:22] LABS: ALANINE AMINOTRANSFERASE 336 U/L (12-78); ALBUMIN 1.8 G/DL (3.4-5.0); ALBUMIN/GLOBULIN RATIO 0.8 (1.1-1.5); ALKALINE PHOSPHATASE 143 IU/L (46-116); ANION GAP 7 (8-16); ASPARTATE AMINO TRANSFERASE 290 U/L (10-37); BILIRUBIN,TOTAL 1.7 MG/DL (0.1-1.0); BLOOD UREA NITROGEN 66 MG/DL (7-18); BUN/CREATININE RATIO 36.1 (5.4-32.0); CHLORIDE 99 MMOL/L (99-107); CREATININE 1.83 MG/DL (0.60-1.10); GLUCOSE 112 MG/DL (70-104); POTASSIUM 4.6 MMOL/L (3.5-5.1); SODIUM 133 MMOL/L (135-145); TOTAL CARBON DIOXIDE 27.4 MMOL/L (24-32); TOTAL PROTEIN 4.1 G/DL (6.4-8.2); eGFR 37 ML/MIN
[2017-12-18] MEDS ORDERED: NORepinephrine 8mg/ 250ml NS 250 ML IV ONE (11:35)
[2017-12-18] MEDS ORDERED: fentaNYL /PF 50mcg/ml 5ml ampule ONE (11:43)
[2017-12-18] MEDS ORDERED: ketamine 50mg/5ml syringe ONE ×2 (11:44)
[2017-12-18] MEDS: citalopram 20mg tablet PO SCH (11:45)
[2017-12-18] MEDS ORDERED: NORepinephrine bitartrate 8 MG in NS 250 ML BAG (32 mcg/ml) IV ONE (11:50)
[2017-12-18] MEDS ORDERED: sevoflurane 250ml liquid IH ONE (11:50)
[2017-12-18] MEDS ORDERED: DOBUTamine/D5W 500mg/250ml premix IV ONE (11:50)
[2017-12-18] MEDS ORDERED: CefTRIAXone 2gm/D5W 50ml 50 ML IV SCH (13:00)
[2017-12-18] MEDS ORDERED: LIDOcaine 2% (20mg/ml) 5ml vial ONE (13:22)
[2017-12-18] MEDS ORDERED: rocuronium 10mg/ml inj IV ONE (13:22)
[2017-12-18] MEDS: FENTANYL-0.9 % NACL/PF 100 ML IV PRN (13:29)
[2017-12-18 13:30] LABS: ABG BASE EXCESS -3.6 mmol/L (-2.0-3.0); ABG HCO3 22.4 mmol/L (22.0-26.0); ABG OXYGEN SATURATION 91.7 % (95-98); ABG PCO2 (T) 39.8 mmHg (35.0-48.0); ABG PH (T) 7.358 (7.350-7.450); ABG PO2 (T) 61.9 mmHg (83-108); FCOHb 0.6 % (0.5-1.5); FMetHb 0.3 % (0.3-1.12); FO2Hb 90.9 % (94-100); PATIENT TEMPERATURE 34.7; PEEP 5 cm H2O; RESPIRATORY RATE 16 b/min; TIDAL VOLUME 500 mL; TOTAL HEMOGLOBIN 14.1 G/dl (14.0-18.0)
[2017-12-18] MEDS: cefTAZidime inj 2 GM in normal saline 100ml IV soln 100 ML IV SCH ×2 (15:04→19:53)
[2017-12-18] MEDS: normal saline 1000ml 1,000 ML IV SCH (15:04)
[2017-12-18] MEDS: metroNIDAZOLE-Flagyl 500mg/NS 100 ML IV SCH ×2 (16:47→23:39)
[2017-12-18] MEDS: midazolam 100mg in NS 100ml 100 ML IV PRN (17:14)
[2017-12-18 18:04] LABS: BASOPHILS % (AUTO) 0 % (0-1); EOSINOPHILS % (AUTO) 0 % (0-6); LYMPHOCYTES # (AUTO) 0.1 X10'3 (1.1-4.8); LYMPHOCYTES % (AUTO) 1.9 % (21-51); MEAN CORPUSCULAR HEMOGLOBIN 31.7 PG (27.0-31.0); MEAN CORPUSCULAR HGB CONC 32.5 % (33.0-36.5); MEAN CORPUSCULAR VOLUME 97.7 FL (78-98); MEAN PLATELET VOLUME 9.4 FL (7.4-10.4); MONOCYTES # (AUTO) 0.2 X10'3 (0-0.9); MONOCYTES % (AUTO) 2.5 % (2-12); NEUTROPHILS # (AUTO) 7.4 X10'3 (1.8-7.7); NEUTROPHILS % (AUTO) 95.6 % (42-75); PLATELET COUNT 109 X10'3 (140-440); RED BLOOD COUNT 4.09 X10'6 (4.70-6.10); RED CELL DISTRIBUTION WIDTH 17.3 % (11.5-14.5); WHITE BLOOD COUNT 7.7 X10'3 (4.5-11.0)
[2017-12-18 18:19] LABS: ALANINE AMINOTRANSFERASE 228 U/L (12-78); ALBUMIN 1.8 G/DL (3.4-5.0); ALKALINE PHOSPHATASE 98 IU/L (46-116); ANION GAP 8 (8-16); ASPARTATE AMINO TRANSFERASE 179 U/L (10-37); BILIRUBIN,TOTAL 1.5 MG/DL (0.1-1.0); BLOOD UREA NITROGEN 60 MG/DL (7-18); BUN/CREATININE RATIO 37.3 (5.4-32.0); CALCIUM 6.7 MG/DL (8.5-10.1); CHLORIDE 102 MMOL/L (99-107); CREATININE 1.61 MG/DL (0.60-1.10); GLUCOSE 146 MG/DL (70-104); POTASSIUM 4.1 MMOL/L (3.5-5.1); SODIUM 134 MMOL/L (135-145); TOTAL CARBON DIOXIDE 24.3 MMOL/L (24-32); TOTAL PROTEIN 3.6 G/DL (6.4-8.2); eGFR 43 ML/MIN
[2017-12-18] MEDS: DOBUTamine-DoBUTrex 500mg/D5W 250 ML IV SCH (18:43)
[2017-12-18] MEDS: NORepinephrine 8mg/ 250ml NS 250 ML IV SCH (18:43)
[2017-12-18] MEDS: vancomycin/NS 1 GM ADD-VANTAGE 250 ML IV SCH (19:54)
[2017-12-18] MEDS ORDERED: amitriptyline 25mg tablet PO SCH (21:00)
[2017-12-19] VITALS (24 sets, daily range): BP systolic 95–124; BP diastolic 46–62
[2017-12-19 02:40] LABS: ABG BASE EXCESS -2.4 mmol/L (-2.0-3.0); ABG HCO3 22.3 mmol/L (22.0-26.0); ABG PCO2 (T) 37.5 mmHg (35.0-48.0); ABG PO2 (T) 69.7 mmHg (83-108); FCOHb 0.2 % (0.5-1.5); FMetHb 0.3 % (0.3-1.12); FO2Hb 92.5 % (94-100); MINUTE VOLUME 8 L/min; PATIENT TEMPERATURE 36.6; PEEP 5 cm H2O; RESPIRATORY RATE 16 b/min; RESPIRATORY RATE (OBSERVED) 16 b/min; TIDAL VOLUME 500 mL; TOTAL HEMOGLOBIN 12.5 G/dl (14.0-18.0)
[2017-12-19 02:46] LABS: OXYGEN SATURATION (MIXED VEN) 82.4 % (60-80); PO2 MIXED VENOUS (TEMP COR) 47.6 mmHg (35-46)
[2017-12-19 02:48] LABS: BASOPHILS % (AUTO) 0 % (0-1); EOSINOPHILS # (AUTO) 0.1 X10'3 (0-0.9); EOSINOPHILS % (AUTO) 0.9 % (0-6); HEMATOCRIT 35.6 % (42.0-52.0); HEMOGLOBIN 11.5 g/dl (14.0-17.9); LYMPHOCYTES # (AUTO) 0.2 X10'3 (1.1-4.8); LYMPHOCYTES % (AUTO) 2.3 % (21-51); MEAN CORPUSCULAR HEMOGLOBIN 31.8 PG (27.0-31.0); MEAN CORPUSCULAR HGB CONC 32.3 % (33.0-36.5); MEAN CORPUSCULAR VOLUME 98.6 FL (78-98); MEAN PLATELET VOLUME 9.1 FL (7.4-10.4); MONOCYTES # (AUTO) 0.3 X10'3 (0-0.9); MONOCYTES % (AUTO) 4.1 % (2-12); NEUTROPHILS # (AUTO) 7.6 X10'3 (1.8-7.7); NEUTROPHILS % (AUTO) 92.7 % (42-75); PLATELET COUNT 104 X10'3 (140-440); RED BLOOD COUNT 3.61 X10'6 (4.70-6.10); WHITE BLOOD COUNT 8.2 X10'3 (4.5-11.0)
[2017-12-19 03:06] LABS: ALANINE AMINOTRANSFERASE 193 U/L (12-78); ALBUMIN/GLOBULIN RATIO 1.1 (1.1-1.5); ALKALINE PHOSPHATASE 83 IU/L (46-116); ANION GAP 9 (8-16); ASPARTATE AMINO TRANSFERASE 142 U/L (10-37); BILIRUBIN,TOTAL 1.4 MG/DL (0.1-1.0); BLOOD UREA NITROGEN 53 MG/DL (7-18); BUN/CREATININE RATIO 35.3 (5.4-32.0); CALCIUM 7.2 MG/DL (8.5-10.1); CHLORIDE 104 MMOL/L (99-107); GLUCOSE 148 MG/DL (70-104); MAGNESIUM 1.9 MG/DL (1.5-2.4); PHOSPHORUS 4.3 MG/DL (2.3-4.5); POTASSIUM 4.1 MMOL/L (3.5-5.1); SODIUM 136 MMOL/L (135-145); TOTAL CARBON DIOXIDE 23.5 MMOL/L (24-32); TOTAL PROTEIN 3.8 G/DL (6.4-8.2); eGFR 47 ML/MIN
[2017-12-19 03:10] LABS: INR 1.5 INR; PARTIAL THROMBOPLASTIN TIME 53 SECONDS (22-32); PROTHROMBIN TIME 15.3 SECONDS (9.0-12.0)
[2017-12-19] MEDS: ipratropium/albuterol 3ml nebule IH SCH ×4 (03:22→21:09)
[2017-12-19] MEDS: cefTAZidime inj 2 GM in normal saline 100ml IV soln 100 ML IV SCH ×2 (07:45→20:56)
[2017-12-19] MEDS: vancomycin/NS 1 GM ADD-VANTAGE 250 ML IV SCH ×2 (07:46→21:44)
[2017-12-19] MEDS: metroNIDAZOLE-Flagyl 500mg/NS 100 ML IV SCH ×2 (07:46→15:50)
[2017-12-19] MEDS: NORepinephrine 8mg/ 250ml NS 250 ML IV SCH (07:47)
[2017-12-19] MEDS: DOBUTamine-DoBUTrex 500mg/D5W 250 ML IV SCH ×2 (07:47→15:50)
[2017-12-19] MEDS: pantoprazole 40 MG vial IV SCH (07:52)
[2017-12-19] MEDS: citalopram 20mg tablet PO SCH (08:00)
[2017-12-19] MEDS: carVEDilol 3.125mg tablet PO SCH (08:00)
[2017-12-19] MEDS: digoxin 125mcg (0.125mg) tablet PO SCH (08:00)
[2017-12-19] MEDS: lactulose 20gm/30ml cup PO SCH ×2 (08:00→15:50)
[2017-12-19] MEDS: aspirin 81mg tablet.DR PO SCH (08:00)
[2017-12-19] MEDS: docusate sod 100mg capsule PO SCH (08:00)
[2017-12-19] MEDS: atorvastatin 10mg tablet PO SCH (08:00)
[2017-12-19 09:58] LABS: BASOPHILS % (AUTO) 0 % (0-1); EOSINOPHILS % (AUTO) 0 % (0-6); HEMATOCRIT 34.5 % (42.0-52.0); HEMOGLOBIN 11.2 g/dl (14.0-17.9); LYMPHOCYTES # (AUTO) 0.2 X10'3 (1.1-4.8); LYMPHOCYTES % (AUTO) 2.4 % (21-51); MEAN CORPUSCULAR HEMOGLOBIN 31.7 PG (27.0-31.0); MEAN CORPUSCULAR HGB CONC 32.4 % (33.0-36.5); MEAN CORPUSCULAR VOLUME 97.9 FL (78-98); MEAN PLATELET VOLUME 8.2 FL (7.4-10.4); MONOCYTES # (AUTO) 0.7 X10'3 (0-0.9); MONOCYTES % (AUTO) 7.6 % (2-12); NEUTROPHILS # (AUTO) 8.7 X10'3 (1.8-7.7); PLATELET COUNT 107 X10'3 (140-440); RED BLOOD COUNT 3.52 X10'6 (4.70-6.10); RED CELL DISTRIBUTION WIDTH 17.9 % (11.5-14.5); WHITE BLOOD COUNT 9.7 X10'3 (4.5-11.0)
[2017-12-19] MEDS: BUDESONIDE 0.25 MG/2 ML AMPUL.NEB IH SCH ×2 (10:00→21:10)
[2017-12-19 10:11] LABS: ALANINE AMINOTRANSFERASE 185 U/L (12-78); ALBUMIN 1.9 G/DL (3.4-5.0); ALKALINE PHOSPHATASE 84 IU/L (46-116); ANION GAP 9 (8-16); ASPARTATE AMINO TRANSFERASE 123 U/L (10-37); BILIRUBIN,TOTAL 1.4 MG/DL (0.1-1.0); BLOOD UREA NITROGEN 49 MG/DL (7-18); CALCIUM 7.1 MG/DL (8.5-10.1); CHLORIDE 104 MMOL/L (99-107); CREATININE 1.44 MG/DL (0.60-1.10); GLUCOSE 158 MG/DL (70-104); SODIUM 137 MMOL/L (135-145); TOTAL CARBON DIOXIDE 23.9 MMOL/L (24-32); TOTAL PROTEIN 3.8 G/DL (6.4-8.2); eGFR 49 ML/MIN
[2017-12-19] MEDS ORDERED: thiamine 100mg/ml 2ml inj. IV ONE (10:35)
[2017-12-19] MEDS ORDERED: haloperidol 5mg tablet PO PRN (10:35)
[2017-12-19] MEDS ORDERED: LORazepam 1 MG tablet PO PRN (10:35)
[2017-12-19] MEDS ORDERED: haloperidol lactate 5mg/ml inj IM PRN (10:35)
[2017-12-19] MEDS ORDERED: dextrose 50%-water 50ml dispensing syringe IV PRN (10:35)
[2017-12-19] MEDS ORDERED: LORazepam 2 mg/ml vial IV PRN (10:35)
[2017-12-19] MEDS ORDERED: Dextrose 10%-water IV solution 1,000 ML IV PRN (11:27)
[2017-12-19] MEDS ORDERED: magnesium 4gm in 100ml NS 100 ML IV PRN (11:30)
[2017-12-19] MEDS ORDERED: magnesium 1gm/100ml D5W IVPB 100 ML IV PRN (11:30)
[2017-12-19] MEDS ORDERED: magnesium Cl slow-release 64mg tablet PO PRN (11:30)
[2017-12-19] MEDS ORDERED: thiamine inj. 100 MG in normal saline 100ml IV soln 99 ML IV ONE (11:35)
[2017-12-19] MEDS: normal saline 1000ml 1,000 ML IV SCH (11:53)
[2017-12-19] MEDS: pantoprazole 40MG/NS 100ML BAG 100 ML IV SCH ×3 (11:54→21:17)
[2017-12-19] MEDS: digoxin 250mcg/ml 2ml ampule IV SCH (11:54)
[2017-12-19 12:00] LABS: % IRON SATURATION 4 % (11-46); IRON 5 UG/DL (53-167); TOTAL IRON BINDING CAPACITY 134 UG/DL (259-388)
[2017-12-19 12:03] LABS: MAGNESIUM 1.8 MG/DL (1.5-2.4); PHOSPHORUS 3.6 MG/DL (2.3-4.5); PREALBUMIN 7.4 MG/DL (19-36)
[2017-12-19] MEDS: mineral oil/petrolatum ophthal oint EACHEYE SCH ×2 (13:22→21:03)
[2017-12-19] MEDS: hydrocortisone sod succ/PF 100mg/2ml inj. IV SCH ×2 (13:22→20:50)
[2017-12-19] MEDS: albumin (human) 25% 100ml IV 100 ML IV SCH ×2 (13:23→21:03)
[2017-12-19] MEDS: phytonadione inj. 10 MG in normal saline 100ml IV soln 99 ML IV SCH (13:57)
[2017-12-19] MEDS: FENTANYL-0.9 % NACL/PF 100 ML IV PRN (19:07)
[2017-12-19 20:15] LABS: BASOPHILS % (AUTO) 0 % (0-1); EOSINOPHILS % (AUTO) 0 % (0-6); HEMATOCRIT 32.4 % (42.0-52.0); HEMOGLOBIN 10.3 g/dl (14.0-17.9); LYMPHOCYTES # (AUTO) 0.1 X10'3 (1.1-4.8); LYMPHOCYTES % (AUTO) 0.9 % (21-51); MEAN CORPUSCULAR HEMOGLOBIN 31.4 PG (27.0-31.0); MEAN CORPUSCULAR HGB CONC 31.9 % (33.0-36.5); MEAN CORPUSCULAR VOLUME 98.7 FL (78-98); MEAN PLATELET VOLUME 8.2 FL (7.4-10.4); MONOCYTES # (AUTO) 0.6 X10'3 (0-0.9); MONOCYTES % (AUTO) 5.5 % (2-12); NEUTROPHILS # (AUTO) 9.3 X10'3 (1.8-7.7); NEUTROPHILS % (AUTO) 93.6 % (42-75); PLATELET COUNT 109 X10'3 (140-440); RED BLOOD COUNT 3.29 X10'6 (4.70-6.10); RED CELL DISTRIBUTION WIDTH 18.4 % (11.5-14.5)
[2017-12-19 20:29] LABS: ALANINE AMINOTRANSFERASE 152 U/L (12-78); ALBUMIN 2.1 G/DL (3.4-5.0); ALBUMIN/GLOBULIN RATIO 1.1 (1.1-1.5); ALKALINE PHOSPHATASE 77 IU/L (46-116); ANION GAP 8 (8-16); ASPARTATE AMINO TRANSFERASE 89 U/L (10-37); BILIRUBIN,TOTAL 1.2 MG/DL (0.1-1.0); BLOOD UREA NITROGEN 41 MG/DL (7-18); BUN/CREATININE RATIO 31.3 (5.4-32.0); CALCIUM 7.5 MG/DL (8.5-10.1); CHLORIDE 106 MMOL/L (99-107); CREATININE 1.31 MG/DL (0.60-1.10); GLUCOSE 164 MG/DL (70-104); POTASSIUM 3.9 MMOL/L (3.5-5.1); SODIUM 139 MMOL/L (135-145); TOTAL CARBON DIOXIDE 24.9 MMOL/L (24-32); eGFR 55 ML/MIN
[2017-12-19] MEDS: midazolam 100mg in NS 100ml 100 ML IV PRN (20:42)
[2017-12-19] MEDS: fat emulsion IV 100 ML, MVI, adult No.4 with vit. K 10 ML, Trace element-5 inj. 1 ML in... IV SCH ×4 (21:03)
[2017-12-19 21:51] LABS: ANISOCYTOSIS 2+; ELLIPTOCYTES FEW; LARGE PLATELETS FEW; PLATELET ESTIMATE DECREASED; POLYCHROMASIA FEW; TARGET CELLS FEW
[2017-12-20] VITALS (24 sets, daily range): BP systolic 105–128; BP diastolic 57–76
[2017-12-20] MEDS: metroNIDAZOLE-Flagyl 500mg/NS 100 ML IV SCH ×3 (00:42→15:49)
[2017-12-20] MEDS: DOBUTamine-DoBUTrex 500mg/D5W 250 ML IV SCH ×3 (00:50→21:57)
[2017-12-20] MEDS: pantoprazole 40MG/NS 100ML BAG 100 ML IV SCH ×5 (01:03→21:55)
[2017-12-20 02:38] LABS: BASOPHILS % (AUTO) 0 % (0-1); EOSINOPHILS % (AUTO) 0 % (0-6); HEMATOCRIT 30.8 % (42.0-52.0); HEMOGLOBIN 9.9 g/dl (14.0-17.9); LYMPHOCYTES # (AUTO) 0.1 X10'3 (1.1-4.8); LYMPHOCYTES % (AUTO) 1.1 % (21-51); MEAN CORPUSCULAR HEMOGLOBIN 31.7 PG (27.0-31.0); MEAN CORPUSCULAR HGB CONC 32.3 % (33.0-36.5); MEAN CORPUSCULAR VOLUME 98.1 FL (78-98); MEAN PLATELET VOLUME 8.5 FL (7.4-10.4); MONOCYTES # (AUTO) 0.5 X10'3 (0-0.9); MONOCYTES % (AUTO) 5.5 % (2-12); NEUTROPHILS % (AUTO) 93.4 % (42-75); PLATELET COUNT 104 X10'3 (140-440); RED BLOOD COUNT 3.14 X10'6 (4.70-6.10); RED CELL DISTRIBUTION WIDTH 17.9 % (11.5-14.5); WHITE BLOOD COUNT 9.7 X10'3 (4.5-11.0)
[2017-12-20 02:46] LABS: ALANINE AMINOTRANSFERASE 141 U/L (12-78); ALBUMIN 2.3 G/DL (3.4-5.0); ALBUMIN/GLOBULIN RATIO 1.2 (1.1-1.5); ALKALINE PHOSPHATASE 63 IU/L (46-116); ANION GAP 6 (8-16); ASPARTATE AMINO TRANSFERASE 72 U/L (10-37); BILIRUBIN,TOTAL 1.1 MG/DL (0.1-1.0); BLOOD UREA NITROGEN 38 MG/DL (7-18); BUN/CREATININE RATIO 29.5 (5.4-32.0); CALCIUM 7.5 MG/DL (8.5-10.1); CHLORIDE 107 MMOL/L (99-107); CREATININE 1.29 MG/DL (0.60-1.10); GLUCOSE 198 MG/DL (70-104); POTASSIUM 3.9 MMOL/L (3.5-5.1); SODIUM 139 MMOL/L (135-145); TOTAL CARBON DIOXIDE 25.9 MMOL/L (24-32); TOTAL PROTEIN 4.2 G/DL (6.4-8.2); VANCOMYCIN,RANDOM 19.4 UG/ML; eGFR 56 ML/MIN
[2017-12-20] MEDS: hydrocortisone sod succ/PF 100mg/2ml inj. IV SCH ×4 (02:50→19:32)
[2017-12-20] MEDS: mineral oil/petrolatum ophthal oint EACHEYE SCH ×4 (02:50→19:35)
[2017-12-20] MEDS: albumin (human) 25% 100ml IV 100 ML IV SCH ×4 (02:51→19:35)
[2017-12-20 02:52] LABS: INR 1.2 INR; PARTIAL THROMBOPLASTIN TIME 44 SECONDS (22-32)
[2017-12-20] MEDS: ipratropium/albuterol 3ml nebule IH SCH ×4 (03:02→21:13)
[2017-12-20 03:15] LABS: ABG BASE EXCESS -0.4 mmol/L (-2.0-3.0); ABG HCO3 24.3 mmol/L (22.0-26.0); ABG OXYGEN SATURATION 89.9 % (95-98); ABG PCO2 (T) 38.8 mmHg (35.0-48.0); ABG PH (T) 7.411 (7.350-7.450); ABG PO2 (T) 57.8 mmHg (83-108); FCOHb 0.3 % (0.5-1.5); FMetHb 0.3 % (0.3-1.12); FO2Hb 89.4 % (94-100); MINUTE VOLUME 8 L/min; PATIENT TEMPERATURE 36.5; PEEP 5 cm H2O; RESPIRATORY RATE 16 b/min; RESPIRATORY RATE (OBSERVED) 16 b/min; TIDAL VOLUME 500 mL
[2017-12-20] MEDS: normal saline 1000ml 1,000 ML IV SCH (06:20)
[2017-12-20] MEDS: cefTAZidime inj 2 GM in normal saline 100ml IV soln 100 ML IV SCH ×2 (07:16→19:33)
[2017-12-20] MEDS: digoxin 250mcg/ml 2ml ampule IV SCH (07:16)
[2017-12-20] MEDS: vancomycin/NS 1 GM ADD-VANTAGE 250 ML IV SCH (07:16)
[2017-12-20] MEDS: phytonadione inj. 10 MG in normal saline 100ml IV soln 99 ML IV SCH (07:31)
[2017-12-20] MEDS ORDERED: dextrose ORAL solution 15 GM/59 ML bottle PO PRN ×2 (07:50)
[2017-12-20] MEDS ORDERED: dextrose 50%-water 50ml dispensing syringe IV PRN ×2 (07:50)
[2017-12-20] MEDS ORDERED: glucagon, human recombinant 1mg kit SUBCUT PRN (07:50)
[2017-12-20 08:36] LABS: % FREE PSA 11.7 % (.); PSA, FREE 3.85 ng/mL
[2017-12-20] MEDS: insulin regular, human vial - multi-dose SQ SCH ×3 (09:06→22:09)
[2017-12-20] MEDS: BUDESONIDE 0.25 MG/2 ML AMPUL.NEB IH SCH ×2 (09:36→21:13)
[2017-12-20] MEDS ORDERED: furosemide 10 MG/1 ML 10ml inj IV ONE (10:35)
[2017-12-20] MEDS: fluconazole-Diflucan 200mg/NS 100 ML IV SCH (11:13)
[2017-12-20 13:22] LABS: HBSAG SCREEN Negative (Negative); HEP A AB, IGM Negative (Negative); HEP B CORE AB, IGM Negative (Negative); HEPATITIS C ANTIBODY >11.0 s/co ratio (0.0-0.9)
[2017-12-20] MEDS: furosemide 10 MG/1 ML 10ml inj IV SCH (15:49)
[2017-12-20] MEDS: NORepinephrine 8mg/ 250ml NS 250 ML IV SCH (17:20)
[2017-12-20] MEDS: insulin glargine (Lantus) pen - multi-dose SQ SCH (22:10)
[2017-12-21] VITALS (23 sets, daily range): BP systolic 79–122; BP diastolic 58–88
[2017-12-21] MEDS: metroNIDAZOLE-Flagyl 500mg/NS 100 ML IV SCH ×2 (00:01→07:58)
[2017-12-21] MEDS: furosemide 10 MG/1 ML 10ml inj IV SCH ×3 (00:02→17:53)
[2017-12-21 00:23] LABS: ALANINE AMINOTRANSFERASE 101 U/L (12-78); ALBUMIN 3.3 G/DL (3.4-5.0); ALBUMIN/GLOBULIN RATIO 1.7 (1.1-1.5); ALKALINE PHOSPHATASE 56 IU/L (46-116); ANION GAP 7 (8-16); ASPARTATE AMINO TRANSFERASE 38 U/L (10-37); BLOOD UREA NITROGEN 41 MG/DL (7-18); BUN/CREATININE RATIO 29.3 (5.4-32.0); CHLORIDE 106 MMOL/L (99-107); GLUCOSE 253 MG/DL (70-104); PHOSPHORUS 2.9 MG/DL (2.3-4.5); POTASSIUM 3.6 MMOL/L (3.5-5.1); SODIUM 141 MMOL/L (135-145); TOTAL CARBON DIOXIDE 28.4 MMOL/L (24-32); TOTAL PROTEIN 5.2 G/DL (6.4-8.2); eGFR 51 ML/MIN
[2017-12-21 00:44] LABS: INR 1.1 INR; PARTIAL THROMBOPLASTIN TIME 42 SECONDS (22-32); PROTHROMBIN TIME 11.4 SECONDS (9.0-12.0)
[2017-12-21 01:02] LABS: BASOPHILS % (AUTO) 0 % (0-1); EOSINOPHILS # (AUTO) 0.1 X10'3 (0-0.9); EOSINOPHILS % (AUTO) 1.2 % (0-6); HEMATOCRIT 30.2 % (42.0-52.0); HEMOGLOBIN 9.7 g/dl (14.0-17.9); LYMPHOCYTES # (AUTO) 0.1 X10'3 (1.1-4.8); LYMPHOCYTES % (AUTO) 0.7 % (21-51); MEAN CORPUSCULAR HEMOGLOBIN 31.9 PG (27.0-31.0); MEAN CORPUSCULAR HGB CONC 32.2 % (33.0-36.5); MEAN CORPUSCULAR VOLUME 99.3 FL (78-98); MEAN PLATELET VOLUME 9.2 FL (7.4-10.4); MONOCYTES # (AUTO) 0.6 X10'3 (0-0.9); MONOCYTES % (AUTO) 5.8 % (2-12); NEUTROPHILS # (AUTO) 9.4 X10'3 (1.8-7.7); NEUTROPHILS % (AUTO) 92.3 % (42-75); PLATELET COUNT 102 X10'3 (140-440); RED BLOOD COUNT 3.04 X10'6 (4.70-6.10); RED CELL DISTRIBUTION WIDTH 18.4 % (11.5-14.5); WHITE BLOOD COUNT 10.2 X10'3 (4.5-11.0)
[2017-12-21] MEDS ORDERED: metoprolol tartrate 1mg/ml inj IV ONE ×3 (01:20→19:45)
[2017-12-21] MEDS: hydrocortisone sod succ/PF 100mg/2ml inj. IV SCH ×4 (02:12→20:10)
[2017-12-21] MEDS: albumin (human) 25% 100ml IV 100 ML IV SCH ×2 (02:13→07:57)
[2017-12-21] MEDS: insulin regular, human vial - multi-dose SQ SCH ×4 (02:18→20:52)
[2017-12-21 02:20] LABS: HYPOCHROMASIA 1+; LARGE PLATELETS FEW; PLATELET ESTIMATE DECREASED; POLYCHROMASIA FEW
[2017-12-21 02:21] LABS: ANISOCYTOSIS 2+; ELLIPTOCYTES FEW; TARGET CELLS FEW
[2017-12-21] MEDS: ipratropium/albuterol 3ml nebule IH SCH ×4 (03:34→20:52)
[2017-12-21] MEDS: mineral oil/petrolatum ophthal oint EACHEYE SCH ×4 (03:40→19:47)
[2017-12-21] MEDS: pantoprazole 40MG/NS 100ML BAG 100 ML IV SCH ×4 (03:40→19:44)
[2017-12-21 04:25] LABS: ABG BASE EXCESS 1.2 mmol/L (-2.0-3.0); ABG HCO3 26.2 mmol/L (22.0-26.0); ABG PCO2 (T) 43.3 mmHg (35.0-48.0); ABG PH (T) 7.399 (7.350-7.450); FCOHb 0.2 % (0.5-1.5); FMetHb 0.1 % (0.3-1.12); FO2Hb 93.7 % (94-100); MINUTE VOLUME 10 L/min; PATIENT TEMPERATURE 36.9; PEEP 5 cm H2O; RESPIRATORY RATE 16 b/min; RESPIRATORY RATE (OBSERVED) 18 b/min; TIDAL VOLUME 500 mL; TOTAL HEMOGLOBIN 10.8 G/dl (14.0-18.0)
[2017-12-21] MEDS: BUDESONIDE 0.25 MG/2 ML AMPUL.NEB IH SCH ×2 (07:11→20:52)
[2017-12-21] MEDS: cefTAZidime inj 2 GM in normal saline 100ml IV soln 100 ML IV SCH ×2 (07:58→19:45)
[2017-12-21] MEDS: fluconazole-Diflucan 200mg/NS 100 ML IV SCH (07:59)
[2017-12-21] MEDS: FENTANYL-0.9 % NACL/PF 100 ML IV PRN (08:00)
[2017-12-21] MEDS: digoxin 250mcg/ml 2ml ampule IV SCH (08:01)
[2017-12-21] MEDS: phytonadione inj. 10 MG in normal saline 100ml IV soln 99 ML IV SCH (08:16)
[2017-12-21 11:21] LABS: OXYGEN SATURATION (MIXED VEN) 73.7 % (60-80); PO2 MIXED VENOUS (TEMP COR) 39.6 mmHg (35-46)
[2017-12-21] MEDS: NORepinephrine 8mg/ 250ml NS 250 ML IV SCH (17:56)
[2017-12-21] MEDS: fat emulsion IV 100 ML, MVI, adult No.4 with vit. K 10 ML, Trace element-5 inj. 1 ML in... IV SCH ×4 (20:00)
[2017-12-21] MEDS: lactobacillus rhamnosus 10,000 MMU CELLS/CAPSULE PO SCH (20:11)
[2017-12-21 20:51] LABS: ABG BASE EXCESS -2.1 mmol/L (-2.0-3.0); ABG OXYGEN SATURATION 95.3 % (95-98); ABG PCO2 (T) 41.5 mmHg (35.0-48.0); ABG PH (T) 7.364 (7.350-7.450); ABG PO2 (T) 83.9 mmHg (83-108); FCOHb 0.3 % (0.5-1.5); FMetHb 0.2 % (0.3-1.12); FO2Hb 94.8 % (94-100); MINUTE VOLUME 9 L/min; PATIENT TEMPERATURE 37.5; PEEP 8 cm H2O; RESPIRATORY RATE 16 b/min; RESPIRATORY RATE (OBSERVED) 16 b/min; TIDAL VOLUME 500 mL; TOTAL HEMOGLOBIN 13.1 G/dl (14.0-18.0)
[2017-12-21] MEDS: insulin glargine (Lantus) pen - multi-dose SQ SCH (20:59)
[2017-12-21 22:10] LABS: BASOPHILS # (AUTO) 0.1 X10'3 (0-0.2); BASOPHILS % (AUTO) 0.6 % (0-1); EOSINOPHILS # (AUTO) 0.1 X10'3 (0-0.9); EOSINOPHILS % (AUTO) 0.4 % (0-6); HEMATOCRIT 37.7 % (42.0-52.0); HEMOGLOBIN 11.8 g/dl (14.0-17.9); LYMPHOCYTES # (AUTO) 0.2 X10'3 (1.1-4.8); LYMPHOCYTES % (AUTO) 1.3 % (21-51); MEAN CORPUSCULAR HEMOGLOBIN 31.2 PG (27.0-31.0); MEAN CORPUSCULAR HGB CONC 31.2 % (33.0-36.5); MEAN CORPUSCULAR VOLUME 99.9 FL (78-98); MEAN PLATELET VOLUME 9.2 FL (7.4-10.4); MONOCYTES # (AUTO) 0.8 X10'3 (0-0.9); MONOCYTES % (AUTO) 5.3 % (2-12); NEUTROPHILS # (AUTO) 14.9 X10'3 (1.8-7.7); NEUTROPHILS % (AUTO) 92.4 % (42-75); PLATELET COUNT 131 X10'3 (140-440); RED BLOOD COUNT 3.77 X10'6 (4.70-6.10); RED CELL DISTRIBUTION WIDTH 18.4 % (11.5-14.5); WHITE BLOOD COUNT 16.1 X10'3 (4.5-11.0)
[2017-12-21 22:17] LABS: ALANINE AMINOTRANSFERASE 70 U/L (12-78); ALBUMIN 3.1 G/DL (3.4-5.0); ALBUMIN/GLOBULIN RATIO 1.4 (1.1-1.5); ALKALINE PHOSPHATASE 84 IU/L (46-116); ANION GAP 13 (8-16); ASPARTATE AMINO TRANSFERASE 28 U/L (10-37); BLOOD UREA NITROGEN 54 MG/DL (7-18); BUN/CREATININE RATIO 34.2 (5.4-32.0); CALCIUM 7.7 MG/DL (8.5-10.1); CHLORIDE 105 MMOL/L (99-107); CREATININE 1.58 MG/DL (0.60-1.10); GLUCOSE 206 MG/DL (70-104); POTASSIUM 3.8 MMOL/L (3.5-5.1); SODIUM 142 MMOL/L (135-145); TOTAL CARBON DIOXIDE 24.5 MMOL/L (24-32); TOTAL PROTEIN 5.3 G/DL (6.4-8.2); eGFR 44 ML/MIN
[2017-12-21 22:26] LABS: PLATELET ESTIMATE DECREASED
[2017-12-21 22:27] LABS: ANISOCYTOSIS 2+; LARGE PLATELETS FEW; POLYCHROMASIA FEW; TARGET CELLS FEW
[2017-12-21 22:28] LABS: ELLIPTOCYTES FEW
[2017-12-21 23:03] LABS: MAGNESIUM 1.9 MG/DL (1.5-2.4); PHOSPHORUS 4.1 MG/DL (2.3-4.5)
[2017-12-22] VITALS (24 sets, daily range): BP systolic 81–138; BP diastolic 50–90
[2017-12-22] MEDS: midazolam 100mg in NS 100ml 100 ML IV PRN
[2017-12-22] MEDS: pantoprazole 40MG/NS 100ML BAG 100 ML IV SCH ×6 (01:12→22:00)
[2017-12-22] MEDS: hydrocortisone sod succ/PF 100mg/2ml inj. IV SCH ×4 (02:36→20:26)
[2017-12-22] MEDS: mineral oil/petrolatum ophthal oint EACHEYE SCH ×4 (02:39→20:38)
[2017-12-22] MEDS: insulin regular, human vial - multi-dose SQ SCH ×4 (02:39→20:46)
[2017-12-22 02:46] LABS: BASOPHILS % (AUTO) 0 % (0-1); EOSINOPHILS # (AUTO) 0.2 X10'3 (0-0.9); EOSINOPHILS % (AUTO) 1.4 % (0-6); HEMATOCRIT 39.6 % (42.0-52.0); HEMOGLOBIN 12.6 g/dl (14.0-17.9); LYMPHOCYTES # (AUTO) 0.3 X10'3 (1.1-4.8); LYMPHOCYTES % (AUTO) 1.9 % (21-51); MEAN CORPUSCULAR HEMOGLOBIN 31.8 PG (27.0-31.0); MEAN CORPUSCULAR HGB CONC 31.9 % (33.0-36.5); MEAN CORPUSCULAR VOLUME 99.5 FL (78-98); MEAN PLATELET VOLUME 9.1 FL (7.4-10.4); MONOCYTES # (AUTO) 1.2 X10'3 (0-0.9); MONOCYTES % (AUTO) 7.1 % (2-12); NEUTROPHILS % (AUTO) 89.6 % (42-75); PLATELET COUNT 128 X10'3 (140-440); RED BLOOD COUNT 3.98 X10'6 (4.70-6.10); RED CELL DISTRIBUTION WIDTH 18.3 % (11.5-14.5); WHITE BLOOD COUNT 16.7 X10'3 (4.5-11.0)
[2017-12-22] MEDS: ipratropium/albuterol 3ml nebule IH SCH ×3 (03:00→14:39)
[2017-12-22 03:05] LABS: ALANINE AMINOTRANSFERASE 129 U/L (12-78); ALBUMIN/GLOBULIN RATIO 1.4 (1.1-1.5); ALKALINE PHOSPHATASE 89 IU/L (46-116); ANION GAP 10 (8-16); ASPARTATE AMINO TRANSFERASE 177 U/L (10-37); BILIRUBIN,TOTAL 1.2 MG/DL (0.1-1.0); BLOOD UREA NITROGEN 60 MG/DL (7-18); BUN/CREATININE RATIO 35.7 (5.4-32.0); CALCIUM 8.1 MG/DL (8.5-10.1); CHLORIDE 106 MMOL/L (99-107); CREATININE 1.68 MG/DL (0.60-1.10); GLUCOSE 166 MG/DL (70-104); PHOSPHORUS 4.3 MG/DL (2.3-4.5); POTASSIUM 3.9 MMOL/L (3.5-5.1); SODIUM 141 MMOL/L (135-145); TOTAL CARBON DIOXIDE 24.6 MMOL/L (24-32); TOTAL PROTEIN 5.1 G/DL (6.4-8.2); TRIGLYCERIDES 20 MG/DL (20-135); eGFR 41 ML/MIN
[2017-12-22 03:14] LABS: ELLIPTOCYTES FEW; LARGE PLATELETS FEW; PLATELET ESTIMATE DECREASED; POLYCHROMASIA FEW; TARGET CELLS FEW
[2017-12-22 03:15] LABS: TROPONIN I 1.01 NG/ML (0.0-0.05)
[2017-12-22 03:16] LABS: INR 1.4 INR; PARTIAL THROMBOPLASTIN TIME 39 SECONDS (22-32)
[2017-12-22 03:22] LABS: ANISOCYTOSIS 2+
[2017-12-22 03:26] LABS: ABG BASE EXCESS -1.7 mmol/L (-2.0-3.0); ABG HCO3 23.4 mmol/L (22.0-26.0); ABG OXYGEN SATURATION 95.2 % (95-98); ABG PCO2 (T) 41.6 mmHg (35.0-48.0); ABG PO2 (T) 82.1 mmHg (83-108); FCOHb 0.1 % (0.5-1.5); FMetHb 0.3 % (0.3-1.12); FO2Hb 94.8 % (94-100); MINUTE VOLUME 12 L/min; PATIENT TEMPERATURE 37.5; PEEP 8 cm H2O; RESPIRATORY RATE 16 b/min; RESPIRATORY RATE (OBSERVED) 16 b/min; TIDAL VOLUME 500 mL; TOTAL HEMOGLOBIN 13.4 G/dl (14.0-18.0)
[2017-12-22] MEDS ORDERED: amiodarone/D5 360MG/200ML BAG 200 ML IV SCH (03:49)
[2017-12-22] MEDS: cefTAZidime inj 2 GM in normal saline 100ml IV soln 100 ML IV SCH ×2 (07:36→20:35)
[2017-12-22] MEDS: fluconazole-Diflucan 200mg/NS 100 ML IV SCH (07:37)
[2017-12-22] MEDS: NORepinephrine 8mg/ 250ml NS 250 ML IV SCH ×2 (07:53→16:10)
[2017-12-22] MEDS: furosemide 10 MG/1 ML 10ml inj IV SCH ×3 (08:00→16:00)
[2017-12-22] MEDS: lactobacillus rhamnosus 10,000 MMU CELLS/CAPSULE PO SCH ×2 (08:00→20:31)
[2017-12-22] MEDS: digoxin 250mcg/ml 2ml ampule IV SCH (08:09)
[2017-12-22] MEDS ORDERED: adenosine 3mg/ml 2ml vial IV ONE ×2 (09:00)
[2017-12-22] MEDS: BUDESONIDE 0.25 MG/2 ML AMPUL.NEB IH SCH ×2 (09:01→18:31)
[2017-12-22 09:25] LABS: OXYGEN SATURATION (MIXED VEN) 58.2 % (60-80); PO2 MIXED VENOUS (TEMP COR) 39.3 mmHg (35-46)
[2017-12-22] MEDS ORDERED: diltiazem-NS 100mg/100ml 100 ML IV SCH (09:40)
[2017-12-22] MEDS: adenosine 3mg/ml 2ml vial IV PRN ×2 (09:41→09:43)
[2017-12-22] MEDS: DOBUTamine-DoBUTrex 500mg/D5W 250 ML IV SCH ×2 (09:49→20:50)
[2017-12-22] MEDS ORDERED: diltiazem 5mg/ml 5ml inj. IV ONE (10:40)
[2017-12-22] MEDS: esmolol/sodium cl bag 250 ML IV SCH (12:44)
[2017-12-22] MEDS: fat emulsion IV 100 ML, MVI, adult No.4 with vit. K 10 ML, Trace element-5 inj. 1 ML in... IV SCH ×4 (17:13)
[2017-12-22] MEDS: albuterol 2.5 MG/3 ML nebule NEB PRN ×2 (18:31→22:29)
[2017-12-22] MEDS: insulin glargine (Lantus) pen - multi-dose SQ SCH (20:47)
[2017-12-23] VITALS (20 sets, daily range): BP systolic 51–122; BP diastolic 41–78
[2017-12-23] MEDS: insulin regular, human vial - multi-dose SQ SCH ×2 (02:21→08:33)
[2017-12-23] MEDS: ipratropium/albuterol 3ml nebule IH SCH ×4 (02:25→16:05)
[2017-12-23] MEDS: hydrocortisone sod succ/PF 100mg/2ml inj. IV SCH ×3 (02:41→14:00)
[2017-12-23] MEDS: NORepinephrine 8mg/ 250ml NS 250 ML IV SCH ×3 (02:41→15:06)
[2017-12-23] MEDS: mineral oil/petrolatum ophthal oint EACHEYE SCH ×3 (02:42→14:00)
[2017-12-23] MEDS: esmolol/sodium cl bag 250 ML IV SCH ×4 (02:43→11:08)
[2017-12-23 02:54] LABS: BASOPHILS % (AUTO) 0 % (0-1); EOSINOPHILS % (AUTO) 0 % (0-6); HEMATOCRIT 39.5 % (42.0-52.0); HEMOGLOBIN 12.5 g/dl (14.0-17.9); LYMPHOCYTES # (AUTO) 0.3 X10'3 (1.1-4.8); LYMPHOCYTES % (AUTO) 1.5 % (21-51); MEAN CORPUSCULAR HEMOGLOBIN 31.4 PG (27.0-31.0); MEAN CORPUSCULAR HGB CONC 31.7 % (33.0-36.5); MEAN PLATELET VOLUME 10.4 FL (7.4-10.4); MONOCYTES # (AUTO) 1.4 X10'3 (0-0.9); MONOCYTES % (AUTO) 8.4 % (2-12); NEUTROPHILS # (AUTO) 15.5 X10'3 (1.8-7.7); NEUTROPHILS % (AUTO) 90.1 % (42-75); PLATELET COUNT 104 X10'3 (140-440); RED BLOOD COUNT 3.99 X10'6 (4.70-6.10); WHITE BLOOD COUNT 17.1 X10'3 (4.5-11.0)
[2017-12-23 02:59] LABS: INR 2.3 INR; PROTHROMBIN TIME 21.9 SECONDS (9.0-12.0)
[2017-12-23 03:00] LABS: PARTIAL THROMBOPLASTIN TIME 49 SECONDS (22-32)
[2017-12-23 03:05] LABS: ALBUMIN 2.2 G/DL (3.4-5.0); ALBUMIN/GLOBULIN RATIO 1.1 (1.1-1.5); ALKALINE PHOSPHATASE 94 IU/L (46-116); ANION GAP 9 (8-16); BILIRUBIN,TOTAL 1.1 MG/DL (0.1-1.0); BLOOD UREA NITROGEN 74 MG/DL (7-18); BUN/CREATININE RATIO 42.3 (5.4-32.0); CALCIUM 7.3 MG/DL (8.5-10.1); CHLORIDE 109 MMOL/L (99-107); CREATININE 1.75 MG/DL (0.60-1.10); GLUCOSE 282 MG/DL (70-104); MAGNESIUM 1.9 MG/DL (1.5-2.4); PHOSPHORUS 4.2 MG/DL (2.3-4.5); POTASSIUM 4.3 MMOL/L (3.5-5.1); SODIUM 142 MMOL/L (135-145); TOTAL CARBON DIOXIDE 24.1 MMOL/L (24-32); TOTAL PROTEIN 4.2 G/DL (6.4-8.2); eGFR 39 ML/MIN
[2017-12-23 03:17] LABS: NUCLEATED RED BLOOD CELLS 11 /100WBC (0-0); TOTAL CELLS COUNTED 100
[2017-12-23 03:18] LABS: PLATELET ESTIMATE DECREASED
[2017-12-23 03:19] LABS: ANISOCYTOSIS 2+; ELLIPTOCYTES FEW; POLYCHROMASIA FEW
[2017-12-23 03:24] LABS: ALANINE AMINOTRANSFERASE 3184 U/L (12-78); ASPARTATE AMINO TRANSFERASE > 7000 U/L (10-37)
[2017-12-23] MEDS: pantoprazole 40MG/NS 100ML BAG 100 ML IV SCH ×4 (03:55→16:00)
[2017-12-23 03:56] LABS: ABG BASE EXCESS -2.1 mmol/L (-2.0-3.0); ABG HCO3 22.4 mmol/L (22.0-26.0); ABG OXYGEN SATURATION 95.3 % (95-98); ABG PCO2 (T) 38.9 mmHg (35.0-48.0); ABG PH (T) 7.382 (7.350-7.450); ABG PO2 (T) 84.8 mmHg (83-108); FCOHb 0.4 % (0.5-1.5); FMetHb 0.3 % (0.3-1.12); FO2Hb 94.6 % (94-100); MINUTE VOLUME 9 L/min; PATIENT TEMPERATURE 37.7; PEEP 5 cm H2O; RESPIRATORY RATE 16 b/min; RESPIRATORY RATE (OBSERVED) 18 b/min; TIDAL VOLUME 500 mL; TOTAL HEMOGLOBIN 13.5 G/dl (14.0-18.0)
[2017-12-23] MEDS: midazolam 100mg in NS 100ml 100 ML IV PRN (04:32)
[2017-12-23] MEDS: furosemide 10 MG/1 ML 10ml inj IV SCH ×3 (08:00→16:00)
[2017-12-23] MEDS: cefTAZidime inj 2 GM in normal saline 100ml IV soln 100 ML IV SCH (08:06)
[2017-12-23] MEDS: fluconazole-Diflucan 200mg/NS 100 ML IV SCH (08:07)
[2017-12-23] MEDS: DOBUTamine-DoBUTrex 500mg/D5W 250 ML IV SCH (08:09)
[2017-12-23] MEDS: digoxin 250mcg/ml 2ml ampule IV SCH (08:11)
[2017-12-23] MEDS: lactobacillus rhamnosus 10,000 MMU CELLS/CAPSULE PO SCH (08:11)
[2017-12-23] MEDS: BUDESONIDE 0.25 MG/2 ML AMPUL.NEB IH SCH (09:00)
[2017-12-23] MEDS ORDERED: LORazepam 2 mg/ml vial IV PRN (15:35)
[2017-12-23] MEDS ORDERED: morphine 2 MG/ML inj. syringe IV PRN (15:35)
[2017-12-23] MEDS: morphine 2 MG/ML inj. syringe IV PRN ×3 (16:09→17:31)
== END 2017-12-23 19:37 | disposition expired | DRG 853 ==
LOC: ER 10:58 → ED HOLD 19:13 → ICU 2S 20:35
PROVIDERS: ADMIT Internal Medicine Critical Care Medicine; ATTEND Internal Medicine Critical Care Medicine
PROC: 05HY33Z Insertion of Infusion Device into Upper Vein, Percutaneous Approach (ICD-10-PCS; 2017-12-17)
PROC: 02HV33Z Insertion of Infusion Device into Superior Vena Cava, Percutaneous Approach (ICD-10-PCS; 2017-12-18)
PROC: B543ZZA Ultrasonography of Right Jugular Veins, Guidance (ICD-10-PCS; 2017-12-18)
PROC: 5A1955Z Respiratory Ventilation, Greater than 96 Consecutive Hours (ICD-10-PCS; 2017-12-18)
PROC: 0DU907Z Supplement Duodenum with Autologous Tissue Substitute, Open Approach (ICD-10-PCS; principal; 2017-12-18 11:50)
DX: A41.9 Sepsis, unspecified organism (principal); I62.03 Nontraumatic chronic subdural hemorrhage; K26.5 Chronic or unspecified duodenal ulcer with perforation; E87.2 Acidosis; N17.9 Acute kidney failure, unspecified; R18.8 Other ascites; K72.90 Hepatic failure, unspecified without coma; E78.00 Pure hypercholesterolemia, unspecified; I11.0 Hypertensive heart disease with heart failure; I25.10 Atherosclerotic heart disease of native coronary artery without angina pectoris; I50.9 Heart failure, unspecified; J44.9 Chronic obstructive pulmonary disease, unspecified; K74.60 Unspecified cirrhosis of liver; N50.89 Other specified disorders of the male genital organs; Z87.11 Personal history of peptic ulcer disease
CPT/HCPCS: 36415; 36556; 36600; 70450; 71045; 74018; 74176; 76700; 80053; 80074; 80162; 80202; 80305; 80320; 81003; 82140; 82150; 82570; 82803; 82810; 82948; 83540; 83550; 83605; 83690; 83735; 83880; 83986; 84100; 84134; 84145; 84153; 84154; 84300; 84478; 84484; 85018; 85025; 85610; 85730; 86885; 86900; 86901; 86920; 87040; 87070; 87077; 87186; 93005; 93306; 93308; 94002; 94003; 94640; 94760; 96365; 96375; 99291; A6251; A6253; A6258; A6446; A7000; C9113; G0378; J0153; J0696; J0713; J1160; J1250; J1450; J1720; J1815; J1940; J2001; J2250; J2270; J2405; J3010; J3370; J3411; J3430; J3490; J7030; P9047